=== PATIENT | male | born 1970 | race Hispanic/Latino ===

== ENCOUNTER 2017-03-28 20:53 | Observation (INO) | payer BC, OTHER ==
[2017-03-28 21:23] LABS: #Basophils 0.1 thou/uL (0.0-0.2); #Eosinphils 0.1 thou/uL (0.0-0.7); #Lymphocytes 2.5 thou/uL (1.20-3.40); #Monocytes 0.5 thou/uL (0.11-0.59); #Neutrophils 4.9 thou/uL (1.40-6.50); %Basophils 0.6 % (0.0-1.0); %Eosinophils 0.9 % (0.0-10.0); %Lymphocytes 31.3 % (21.0-51.0); %Monocytes 6.3 % (0.0-10.0); Hematocrit 41.9 % (42.0-52.0); Red Blood Cell (RBC) Count 4.59 mill/uL (4.70-6.10); White Blood Cell (WBC) Count 8.1 thou/uL (4.8-10.8)
[2017-03-28 21:51] LABS: ALT (SGPT) 11 U/L (8-55); AST (SGOT) 15 U/L (5-34); Alkaline Phosphatase 75 U/L (40-150); Anion Gap 13 mmol/L (10-20); BUN (Urea Nitrogen) 15 mg/dL (8.9-20.6); Bilirubin, Total 1.3 mg/dL (0.2-1.2); CK (CPK) 109 U/L (30-200); Calc. Creatinine Clearance 0 mL/min (70-130); Carbon Dioxide 24 mmol/L (22-29); Chloride 109 mmol/L (98-107); Estimated GFR-MDRD 78; Globulin 3.3 g/dL (2.4-3.5); Lipase 7 U/L (8-78); Protein, Total 7.1 g/dL (6.0-8.3)
[2017-03-28 21:54] LABS: Troponin I Less than 0.010 ng/mL (< 0.028)
--- NOTE | 2017-03-28 22:13 | RAD ---
PA AND LATERAL CHEST RADIOGRAPH: Date: 03-28-17 History: Upper abdominal pain, nausea. Comparison: 10-11-15, 12-20-16 FINDINGS: A single lead left subclavian AICD device remains in place. Cardiac silhouette remains enlarged. Par enchymal opacities at the lung bases on the prior studies are no longer seen and there is only minim al linear densities seen at each lung base, probably related to minimal scarring or atelectasis. Varinder gs are otherwise clear. Pulmonary vasculature is within normal limits. No other interval change. IMPRESSION: 1. No acute cardiopulmonary process. 2. Cardiomegaly. POS: [facility]
--- NOTE | 2017-03-28 23:54 | CT ---
NONCONTRAST CT ABDOMEN AND PELVIS: Date: 03-28-17 History: Upper abdominal pain with nausea. Constipation and shortness of breath. Weight loss. Comparison: 08-01-15 FINDINGS: There has been interval placement of a single lead left subclavian AICD device. Heart is mildly enlarged. There are small bilateral pleural effusions and associated minimal passive atelectasis. Gallbladder appears contracted. Nelson of the urinary bladder do appear mildly thickened and there is minimal inflammatory changes seen in the right upper quadrant especially adjacent to the neck of th e gallbladder. Calcified granuloma is seen in the right hepatic lobe. The spleen, pancreas, bilateral adrenal glands, kidneys, and decompressed urinary bladder demonstrat e a grossly normal nonenhanced CT appearance. No renal or ureteral calculi are seen bilaterally. The appendix is visualized and normal in caliber. Vascular calcifications are seen in the abdominal aorta and involving the iliac arteries. There has been no interval change from the prior exam. IMPRESSION: 1. Mild inflammatory stranding seen in the right upper quadrant. The nelson of the gallbladder appear mildly thickened, but this could be related to incomplete distention. Right upper quadrant ultrasou nd may be helpful for further evaluation, and to evaluate for cholecystitis. 2. Small bilateral pleural effusions. 3. No renal or ureteral calculi are seen bilaterally. 4. No CT evidence of appendicitis. 5. Mild cardiomegaly. POS: [facility]
[2017-03-29 00:24] LABS: Bilirubin Small (Negative); Blood, Urine Negative (Negative); Glucose, Urine (Dipstick) Negative (Negative); Ketone, Urine Trace mg/dL (Negative); Protein, Urine (Dipstick) 30 mg/dL (Neg-Trace)
[2017-03-29 00:25] LABS: Nitrite Negative (Negative)
[2017-03-29] MEDS ORDERED: Acetaminophen 500 MG TAB ONE (00:35)
[2017-03-29] MEDS ORDERED: Piperacillin/Tazobactam 3.375 GM in Sodium Chloride 0.9% 100 ML IVPB SCH ×3 (01:45→12:00)
[2017-03-29] MEDS ORDERED: Ondansetron ODT 4 MG TAB SL PRN (02:50)
[2017-03-29] MEDS ORDERED: Ondansetron HCl/PF 4 MG/2 ML Vial IVP PRN ×2 (02:50→16:30)
[2017-03-29] MEDS ORDERED: HYDROcodone/Acetaminophen 5/325 mg Tablet PO PRN ×2 (02:50)
[2017-03-29] MEDS ORDERED: Sodium Chloride 0.9% 1,000 ML IV SCH ×2 (02:50→09:15)
[2017-03-29] MEDS ORDERED: Acetaminophen 325 MG TAB PO PRN (02:50)
[2017-03-29] MEDS ORDERED: Ketorolac Tromethamine 30 MG/ML VIAL IVP PRN ×2 (02:53→06:24)
[2017-03-29 03:06] VITALS: TEMP 97.5; BMI 39.9
[2017-03-29] MEDS ORDERED: Carvedilol 6.25 MG TAB PO SCH (06:15)
[2017-03-29] MEDS ORDERED: Ondansetron ODT 4 MG TAB PO PRN (06:25)
[2017-03-29] MEDS ORDERED: Acetaminophen 1,000 MG in Premix Bag 1 BAG IVPB PRN (06:25)
--- NOTE | 2017-03-29 08:47 | ULT ---
PRELIMINARY REPORT/[facility]/EMERGENCY AFTER HOURS PROCEDURE: EXAM: US Abdomen Limited, Right Upper Quadrant EXAM DATE/TIME: Exam ordered 03/29/2017 12:43 AM CLINICAL HISTORY: 47 years old, male; Pain and signs and symptoms; Nausea and vomiting; Abdominal pain; Epigastric TECHNIQUE: Real-time ultrasound of the right upper quadrant with image documentation. COMPARISON: No relevant prior studies available. FINDINGS: Liver: Hepatic steatosis. No intrahepatic bile duct dilation. Gallbladder: There is diffuse gallbladder wall thickening with mural edema. No perceptible cholelith iasis. No pericholecystic fluid. Positive sonographic Bone sign. Common bile duct: Unremarkable as visualized. No stones. No dilation. Pancreas: Unremarkable as visualized. Right kidney: Unremarkable. No stones. No solid mass. No hydronephrosis. IMPRESSION: Gallbladder wall thickening with mural edema and positive sonographic Bone sign, compatible with a cute cholecystitis. Thank you for allowing us to participate in the care of your patient. Dictated and Authenticated by: Rob Brennan MD 03/29/2017 1:16 AM Central Time ([place] \T\ [place]) FINAL REPORT EMERGENCY AFTER HOURS GALLBLADDER ULTRASOUND: Date: 03/29/17 COMPARISON: 12/20/16. FINDINGS/IMPRESSION: I agree with the findings and impression given in the preliminary report per [facility] physician. No gall stones are seen. However, there appears to be gallbladder wall thickening and a small amount of alena cholecystic fluid. This could be secondary to acalculous cholecystitis. Correlate with LFTs. POS: [facility]
[2017-03-29] MEDS ORDERED: Furosemide 40 MG TAB PO SCH (09:00)
[2017-03-29] MEDS ORDERED: Aspirin 325 MG TAB PO SCH (09:00)
--- NOTE | 2017-03-29 09:15 | HP ---
HISTORY OF PRESENT ILLNESS: Sandeep Olivares is a 47-year-old male [facility] of epigastric right upper quadrant pain. CAT scan of abdomen and pelvis rev ealed some inflammatory changes around the gallbladder, which was contracted. Heart was noted to be mildly enlarged, minimally enlarged. He had some inflammatory effusions and mild cardiomegaly. Ga llbladder ultrasound was obtained revealing gallbladder thickening with mural edema and positive son ographic Bone sign, compatible with acute cholecystitis. Hemoglobin 14, white count 8.1. Liver f unction tests normal except for bilirubin of 1.3. This has been chronically elevated in the past. BNP was 2562. This has also been chronically elevated. Echocardiogram 10/2015 revealed a 25% eject ion fraction and LV dilatation, borderline LVH, read by Dr. Larkin. He had global hypokinesis and had a dilated cardiomyopathy. He was seen by Dr. Garcia in October 2015 for heart failure, diagnosed wit h cardiomyopathy as far back as 2011. Echo at that time 20-25%. Cardiac catheterization was recomm ended by Dr. Garcia at that time, but the patient went home as an outpatient. LifeVest implantation was done at home. Outpatient arrangements for cardiac catheterization and further workup were made . ALLERGIES: None. TOBACCO: Tobacco cessation several years ago. ALCOHOL: None. MEDICATIONS: Coreg 6.25 mg b.i.d., Entresto 24/26 mg tablets b.i.d., Nexium daily, aspirin daily, f urosemide daily. PAST SURGICAL HISTORY: Pacemaker placement. PAST MEDICAL HISTORY: LVH and cardiomyopathy. Will check with Dr. Garcia about recent workup. REVIEW OF SYSTEMS: Noncontributory. PHYSICAL EXAMINATION: VITAL SIGNS: Weight 239 pounds, height 5 foot 5 inches, 39 BMI, 97.5 degrees, 79, 104/71. HEENT: Unremarkable. LUNGS: Clear to auscultation. CARDIAC: Regular rate and rhythm without murmur or gallop. ABDOMEN: Soft, tenderness in his right upper quadrant with mild guarding. EXTREMITIES: Unremarkable. ASSESSMENT AND PLAN: 1. Ultrasound positive sonographic Bone sign, inflammatory changes around the gallbladder, suspec t acute cholecystitis. I would recommend laparoscopic video cholecystectomy. Will talk to Dr. Tim to first and plan this operation this afternoon pending consultation with Dr. Jose. 2. Cardiomyopathy. 3. Hypertension. ADDENDUM: I have spoken with Dr. Garcia. The patient has had a cardiac catheterization that was no rmal. I would plan to give him 1 dose of Lasix 80 mg IV, TKO his IV fluids and plan laparoscopic c holecystectomy this evening. Dr. Garcia states it is safe to proceed and he will probably be able t o see him around noon today preoperatively.
[2017-03-29] MEDS: Sacubitril 24.5 MG/Valsartan 25.5 MG TABLET PO SCH ×2 (09:16→20:03)
[2017-03-29] MEDS: Carvedilol 6.25 MG TAB PO SCH ×2 (09:16→20:02)
[2017-03-29] MEDS ORDERED: Furosemide 100 MG/10 ML VIAL SLOW IVP SCH ×2 (09:19→16:45)
--- NOTE | 2017-03-29 13:09 | CON ---
DATE OF CONSULTATION: 03/29/2017 REASON FOR CONSULTATION: Preoperative evaluation. HISTORY OF PRESENT ILLNESS: Mr. Olivares is a 47-year-old gentleman who comes to the [facility] for abdominal pain. He was diagnosed with biliary colic and is planning on having a cholecystecto my later today. He has a history of nonischemic cardiomyopathy, he was around 25-30% on last evalua tion. He had a heart catheterization less than a year ago and it showed normal coronaries. He even tually had an AICD placed, given his severe cardiomyopathy was not improving with medical therapy. He has been seen several times in the office. He has been euvolemic. Last time he was seen he was getting a little more fluid overload and was starting to have some abdominal pain. We increased his dose of Lasix and actually started to diurese quite well and did not have any need for any further increased Lasix dose. He currently is denying any chest pain, tightness, pressure. No shortness of breath. His breathing is at baseline. His only problem is abdominal pain. PAST MEDICAL HISTORY: 1. Nonischemic dilated cardiomyopathy. 2. Hypertension. 3. History of right pleural effusion, status post thoracentesis. PAST SURGICAL HISTORY: 1. Right thoracentesis as above. 2. Heart catheterization with normal coronaries. 3. AICD placement. OUTPATIENT MEDICATIONS: 1. Coreg 6.25 mg p.o. b.i.d. 2. Entresto 24/26 mg b.i.d. 3. Nexium 20 mg a day. 4. Aspirin 325 mg a day. 5. Lasix 40 mg a day. ALLERGIES: No known drug allergies. FAMILY HISTORY: Type 2 diabetes, otherwise noncontributory. SOCIAL HISTORY: No alcohol, tobacco or drugs. Former alcohol user, quit about 3-4 years ago, quit cigarettes 5-6 years ago. No drug use. REVIEW OF SYSTEMS: Twelve point review of systems was done, is otherwise negative unless stated in the history of present illness. PHYSICAL EXAMINATION: VITAL SIGNS: Temperature 97.5, pulse 79, respiration rate 16, satting 95% on room air, blood pressu re 104/71. GENERAL: Awake, alert, oriented x3, in no distress. HEENT: Normocephalic, atraumatic. NECK: Supple. LUNGS: Clear. CARDIOVASCULAR: S1, S2, no S3, S4, no murmurs or rubs. ABDOMEN: Soft, positive bowel sounds. EXTREMITIES: No edema. SKIN: Warm and dry. LABORATORY WORK: Reviewed. CBC is normal. Chemistries unremarkable except for total bilirubin of 1.3, troponin negative x1. His BNP is 2500, however, he is on Entresto. UA is unremarkable. EKG was reviewed, normal sinus rhythm, no ischemic changes except for occasional PVCs. ASSESSMENT AND PLAN: 1. Preoperative evaluation: He would be an intermediate risk for an intermediate risk procedure. At this point, he should be able to undergo said procedure with the understood risks. Would recomme nd 1 dose of IV Lasix before surgery and just have judicious use of fluids after the procedure. His BNP is not a good surrogate for his level of heart failure. Given his use of Entresto this number is going to be skewed and not going to be accurate. At this time, I think he is very well compensat ed with his heart failure and should be able to undergo procedure. 2. Dilated nonischemic cardiomyopathy, stable as above. Thank you for letting participate in the care of your patient. We will follow.
[2017-03-29] MEDS ORDERED: Iothalamate Meglumine 60% 50 ML VIAL FS ONE (15:02)
[2017-03-29] MEDS ORDERED: Bupivacaine HCl 0.5%/Epinephrine 1:200,000/PF 30 ml Vial ONE (15:02)
[2017-03-29] MEDS ORDERED: Midazolam HCl 2 mg/2 ml Vial ONE (15:03)
[2017-03-29] MEDS ORDERED: Fentanyl 100 MCG/2 ML VIAL ONE ×2 (15:03→17:05)
[2017-03-29] MEDS ORDERED: Ondansetron HCl/PF 4 MG/2 ML Vial ONE (15:24)
[2017-03-29] MEDS ORDERED: Glycopyrrolate 0.2 MG/ML 5 ML SYRINGE ONE (15:24)
[2017-03-29] MEDS ORDERED: Dexamethasone 20 MG/5 ML VIAL ONE (15:24)
[2017-03-29] MEDS ORDERED: PHENYLEPHRINE-NS 100 MCG/ML 10 ML SYRINGE ONE (15:24)
[2017-03-29] MEDS ORDERED: Propofol 200 MG/20 ML VIAL ONE (15:24)
[2017-03-29] MEDS ORDERED: Lidocaine 1% PF 5 ML VIAL ONE (15:24)
[2017-03-29] MEDS ORDERED: Albuterol Sulfate HFA (OR ONLY) ONE (16:12)
[2017-03-29] MEDS ORDERED: Promethazine HCl 25 MG/ML VIAL SLOW IVP PRN (16:30)
[2017-03-29] MEDS ORDERED: HYDROmorphone 2 MG/ML VIAL SLOW IVP PRN (16:30)
[2017-03-29] MEDS ORDERED: Promethazine HCl 25 MG/ML VIAL IM PRN (16:30)
[2017-03-29] MEDS ORDERED: traMADol HCl 50 MG TAB PO PRN ×2 (17:08)
[2017-03-29] MEDS ORDERED: Acetaminophen 500 MG TAB PO PRN (17:08)
[2017-03-29] MEDS ORDERED: Furosemide 40 MG/4 ML VIAL ONE (17:10)
[2017-03-29 20:03] VITALS: BP 112/78
--- NOTE | 2017-03-30 00:42 | OP ---
DATE OF PROCEDURE: 03/29/2017 PREOPERATIVE DIAGNOSIS: Cholecystitis, gallbladder sludge. POSTOPERATIVE DIAGNOSIS: Cholecystitis, gallbladder sludge. PROCEDURE: Laparoscopic cholecystectomy, normal intraoperative cholangiograms using fluoroscopy (im ages were lost by the x-ray radio tower technician and not produced for radiology read). SURGEON: Akira Murillo M.D. ANESTHESIA: General. Local of 0.5% Marcaine with epinephrine, 30 mL. PROCEDURE IN DETAIL: The patient taken to the operating room where under general anesthesia, abdome n was prepared with chloraprep, draped in routine fashion. Local anesthetic of 0.5% Marcaine with e pinephrine infiltrated into skin and subcutaneous tissue about each port site. Infraumbilical incis ion made and pneumoperitoneum to 15 mmHg obtained with the Veress needle, replacing it with a 5 port and laparoscope inserted. Right subxiphoid incision made and 11 port placed. Right subcostal inci alize made mid clavicular anterior axillary lines and 5 ports placed. Liver was congested and slight ly irregular, probably fatty. Fundus of the gallbladder grasped and reflected cephalad. Infundibul um grasped and reflected laterally. Gallbladder wall was edematous and cystic artery and duct disse cted free. Critical view obtained. Cystic artery and duct doubly clipped proximally. Opening made in the cystic duct, cholangiocath inserted and cholangiogram was obtained, using fluoroscopy reveal ing free flow of contrast into the duodenum without filling defects in the common hepatic, common bi le and left and right hepatic ducts. The pancreatic duct partially visualized. Cholangiocatheter r emoved. Cystic artery and duct doubly clipped proximally, divided, and gallbladder dissected free f rom the liver bed obtaining good hemostasis prior to division of final peritoneal attachments. Gall bladder and contents removed and submitted to Pathology. Good hemostasis ensured as irrigant and pn eumoperitoneum evacuated. All instruments removed and all skin incisions approximated with interrup ritu subdermal 4-0 Monocryl and DermaGlue applied.
--- NOTE | 2017-03-30 06:06 | DIS ---
DATE OF ADMISSION: 03/29/2017 DATE OF DISCHARGE: 03/29/2017 HISTORY: Sandeep Berry presented with right upper quadrant pain and nausea. Ultrasound and CAT scan revealed gallbladder distention, sonographic positive Bone sign, inflammation around the gallbladder. Bilirubin was slightly elevated as it chronically is. BMP is chronically elevated . He is known to have a cardiomyopathy, 20%-25% nonischemic. His cardiac catheterization performed earlier this year. He has defibrillator in place. Patient was diuresed and seen by Cardiology and underwent laparoscopic cholecystectomy. Cholangiograms were normal. Postoperatively, plan is for him to be discharged home to resume his home medications. In addition, Ultram # 21 refill given. D iet and activity as tolerated. Resume home medications, [id number] Tylenol, Motrin as needed for pain. Follow up in my office in 2-3 weeks.
[2017-04-03] MEDS ORDERED: Ibuprofen 600 MG TAB PO PRN (12:00)
== END 2017-03-29 21:44 | disposition home or self-care (01) ==
LOC: ERS 20:53 → INTOOBSV 03-29 02:59 → T4-B 03-29 02:59
PROVIDERS: ADMIT Specialist; ATTEND Specialist
PROC: 0FT44ZZ Resection of Gallbladder, Percutaneous Endoscopic Approach (ICD-10-PCS; principal; 2017-03-29)
PROC: BF141ZZ Fluoroscopy of Gallbladder, Bile Ducts and Pancreatic Ducts using Low Osmolar Contrast (ICD-10-PCS; 2017-03-29)
DX: K81.1 Chronic cholecystitis (principal); K65.8 Other peritonitis; I11.0 Hypertensive heart disease with heart failure; I50.9 Heart failure, unspecified; I42.0 Dilated cardiomyopathy; Z79.82 Long term (current) use of aspirin; Z79.899 Other long term (current) drug therapy; Z95.810 Presence of automatic (implantable) cardiac defibrillator; Z87.891 Personal history of nicotine dependence
CPT/HCPCS: 47532; 71020; 74176; 76705; 80053; 81003; 81015; 82550; 82553; 83690; 83880; 84484; 85025; 88304; 93005; 96361; 96365; 96374; 96375; 96376; A4216; G0378; J0670; J1100; J1610; J1940; J2001; J2250; J2270; J2405; J2543; J2704; J3010; J7050; Q9961

== ENCOUNTER 2017-06-03 08:04 | Emergency (ER) | payer BC, OTHER ==
[2017-06-03 08:24] LABS: #Lymphocytes 1.9 thou/uL (1.20-3.40); #Monocytes 0.4 thou/uL (0.11-0.59); #Neutrophils 3.8 thou/uL (1.40-6.50); %Basophils 0.2 % (0.0-1.0); %Eosinophils 0.7 % (0.0-10.0); %Lymphocytes 30.9 % (21.0-51.0); Hematocrit 43.8 % (42.0-52.0); Mean Platelet Volume 8.3 fL (7.4-10.4); Red Blood Cell (RBC) Count 4.68 mill/uL (4.70-6.10); White Blood Cell (WBC) Count 6.1 thou/uL (4.8-10.8)
[2017-06-03] MEDS ORDERED: Lidocaine Viscous Sol 2% 15 ml UD Cup ONE (08:27)
[2017-06-03] MEDS ORDERED: Mag-Al 1200 mg/1200 mg/30 ML UDCUP ONE (08:27)
[2017-06-03 08:32] LABS: PTT 32.3 SEC (22.9-36.1); Prothrombin Time 15.3 SEC (12.0-14.7)
--- NOTE | 2017-06-03 08:50 | RAD ---
PORTABLE AP CHEST XRAY: DATE: 06/03/17. HISTORY: Epigastric pain, shortness of breath. COMPARISON: 12/20/16. FINDINGS: A single lead left subclavian cardiac pacemaking device remains in place. Cardiac silhouette is magn ified by projection but does appear at the upper limits of normal in size to borderline enlarged but is stable from prior exam. There are linear increased densities right lung base probably related to vascular structures. There is suboptimal evaluation of the left lung base, but no definitive consoli dation is seen. Pulmonary vasculature is within normal limits. No other interval change. IMPRESSION: Upper limits of normal to borderline cardiomegaly without overt congestive heart failure. Patchy den sity at the right lung base has improved and on today's exam appears to represent vascular structures . POS: [facility]
[2017-06-03 08:52] LABS: ALT (SGPT) 21 U/L (8-55); AST (SGOT) 22 U/L (5-34); Alkaline Phosphatase 72 U/L (40-150); Anion Gap 13 mmol/L (10-20); BUN (Urea Nitrogen) 15 mg/dL (8.9-20.6); Bilirubin, Total 2.7 mg/dL (0.2-1.2); CK (CPK) 87 U/L (30-200); Calc. Creatinine Clearance 0 mL/min (70-130); Calcium 9.1 mg/dL (7.8-10.44); Carbon Dioxide 24 mmol/L (22-29); Chloride 106 mmol/L (98-107); Estimated GFR-MDRD Greater than 90; Globulin 3.2 g/dL (2.4-3.5); Lipase 9 U/L (8-78); Protein, Total 7.1 g/dL (6.0-8.3)
[2017-06-03 08:56] LABS: Troponin I 0.016 ng/mL (< 0.028)
== END 2017-06-03 10:23 | disposition home or self-care (01) ==
LOC: ERS 08:04
DX: R10.13 Epigastric pain (principal); I11.0 Hypertensive heart disease with heart failure; I50.9 Heart failure, unspecified; Z79.82 Long term (current) use of aspirin; Z79.899 Other long term (current) drug therapy
CPT/HCPCS: 71010; 80053; 82550; 82553; 83690; 83880; 84484; 85025; 85610; 85730; 93005

== ENCOUNTER 2017-06-20 07:52 | Emergency (ER) | payer BC, OTHER ==
--- NOTE | 2017-06-20 08:20 | RAD ---
TWO VIEWS OF THE CHEST: DATE: 06/20/17. COMPARISON: 03/28/17. HISTORY: Fever, cough, and diarrhea. FINDINGS: Marked enlargement of the cardiac silhouette noted with a stable single-lead transvenous pacing devic e. No pneumothorax is noted. There is mild pulmonary vascular prominence, increased since the prior exam. There is patchy increased density in the left lung base partially obscuring the left hemidiaphragm, a new finding. Lateral imaging is limited on the basis of respiratory motion artifact. IMPRESSION: 1. Stable prominent enlargement of the cardiac silhouette. 2. New hazy area of airspace disease noted in the left lung base suggests left lower lobe infectious pneumonitis/aspiration. Recommend followup imaging following treatment to document resolution. POS: [facility]
[2017-06-20 08:41] LABS: #Lymphocytes 0.9 thou/uL (1.20-3.40); #Monocytes 0.9 thou/uL (0.11-0.59); #Neutrophils 7.1 thou/uL (1.40-6.50); %Basophils 0.1 % (0.0-1.0); %Eosinophils 0.1 % (0.0-10.0); %Lymphocytes 9.6 % (21.0-51.0); %Monocytes 10.2 % (0.0-10.0); Hematocrit 40.2 % (42.0-52.0); Mean Platelet Volume 8.5 fL (7.4-10.4); Red Blood Cell (RBC) Count 4.36 mill/uL (4.70-6.10); White Blood Cell (WBC) Count 8.9 thou/uL (4.8-10.8)
[2017-06-20 08:56] LABS: ALT (SGPT) 16 U/L (8-55); AST (SGOT) 22 U/L (5-34); Alkaline Phosphatase 58 U/L (40-150); Anion Gap 14 mmol/L (10-20); BUN (Urea Nitrogen) 19 mg/dL (8.9-20.6); Bilirubin, Total 2.5 mg/dL (0.2-1.2); Calc. Creatinine Clearance 0 mL/min (70-130); Calcium 8.9 mg/dL (7.8-10.44); Carbon Dioxide 22 mmol/L (22-29); Chloride 100 mmol/L (98-107); Estimated GFR-MDRD 69; Globulin 3.1 g/dL (2.4-3.5); Protein, Total 6.9 g/dL (6.0-8.3)
== END 2017-06-20 09:34 | disposition home or self-care (01) ==
LOC: ERS 07:52
DX: J10.1 Influenza due to other identified influenza virus with other respiratory manifestations (principal); I11.0 Hypertensive heart disease with heart failure; I50.9 Heart failure, unspecified; Z79.82 Long term (current) use of aspirin; Z79.899 Other long term (current) drug therapy
CPT/HCPCS: 36415; 71020; 80053; 85025; 87081; 87430

== ENCOUNTER 2017-08-26 20:02 | Inpatient (IN) | payer BC, OTHER ==
[~2017-08-26 20:02] MED LIST: ISOVUE-370 76%-LOCM 1 ML ONE
[2017-08-26 20:38] LABS: Hemoglobin 12.9 g/dL (14.0-18.0); Mean Corpuscular HGB CONC 32.5 g/dL (32.0-36.0); Mean Corpuscular Hemoglobin 29.3 pg (27.0-31.0); Mean Corpuscular Volume 90.1 fl (80.0-94.0); Mean Platelet Volume 8.2 fL (7.4-10.4); Platelet Count 255 thou/uL (130-400); Red Blood Cell (RBC) Count 4.41 mill/uL (4.70-6.10)
--- NOTE | 2017-08-26 20:39 | RAD ---
TWO VIEW CHEST: 08/26/17 HISTORY: Chest pain. COMPARISON: 06/20/17. Cardiomegaly again noted. Mild vascular engorgement appears stable. there is patchy density in the le ft lung base which could represent inflammatory infiltrate. CP angle are blunted suggesting small eff usions. Single AICD lead is unchanged. IMPRESSION: 1. Cardiomegaly with mild vascular engorgement. 2. Evidence of patchy infiltrate in the left lung base and small bilateral effusions. POS: [facility]
[2017-08-26] MEDS ORDERED: Furosemide 40 MG/4 ML VIAL ONE (20:40)
[2017-08-26 20:57] LABS: #Lymphocytes 1.9 thou/uL (1.20-3.40); #Monocytes 0.6 thou/uL (0.11-0.59); #Neutrophils 4.4 thou/uL (1.40-6.50); %Basophils 0.5 % (0.0-1.0); %Eosinophils 0.7 % (0.0-10.0); %Lymphocytes 27.3 % (21.0-51.0); %Monocytes 7.9 % (0.0-10.0); %Neutrophils 63.6 % (42.0-75.0)
[2017-08-26 20:59] LABS: ALT (SGPT) 21 U/L (8-55); AST (SGOT) 27 U/L (5-34); Albumin 3.7 g/dL (3.5-5.0); Alkaline Phosphatase 99 U/L (40-150); Anion Gap 11 mmol/L (10-20); BUN (Urea Nitrogen) 24 mg/dL (8.9-20.6); Bilirubin, Total 1.7 mg/dL (0.2-1.2); CK (CPK) 89 U/L (30-200); Calc. Creatinine Clearance 0 mL/min (70-130); Calcium 8.7 mg/dL (7.8-10.44); Carbon Dioxide 25 mmol/L (22-29); Chloride 106 mmol/L (98-107); Estimated GFR-MDRD 71; Globulin 3.5 g/dL (2.4-3.5); Glucose 132 mg/dL (70-105); Lipase 40 U/L (8-78); Magnesium 2.1 mg/dL (1.6-2.6); Potassium 4.4 mmol/L (3.5-5.1); Protein, Total 7.2 g/dL (6.0-8.3); Sodium 138 mmol/L (136-145)
[2017-08-26 21:00] LABS: INR-International Normal Ratio 1.4; PTT 36.3 SEC (22.9-36.1); Prothrombin Time 17.4 SEC (12.0-14.7)
[2017-08-26 21:01] LABS: CKMB 1.6 ng/mL (0-6.6); Troponin I 0.024 ng/mL (< 0.028)
[2017-08-26 21:15] LABS: D-Dimer Test 5.61 *mcg/mL (0.27-0.43)
[2017-08-26 22:19] LABS: Bilirubin Negative (Negative); Blood, Urine Negative (Negative); Clarity CLEAR (Clear); Glucose, Urine (Dipstick) Negative (Negative); Leukocyte Negative (Negative); Nitrite Negative (Negative); Protein, Urine (Dipstick) Negative (Neg-Trace); Specific Gravity, Urine 1.009 (1.002-1.036); Urobilinogen 0.2 mg/dL (0.2-1.0)
--- NOTE | 2017-08-26 22:42 | CT ---
CT PULMONARY ANGIO OF CHEST WITH CONTRAST: 08/26/17 Multiple axial tomograms were obtained through the chest per pulmonary angio protocol with multiplana r reconstruction and 3D postprocessing. HISTORY: Shortness of breath. Assess for pulmonary embolus. FINDINGS: Pulmonary arteries show adequate opacification. There is no evidence of pulmonary embolus identified. Mediastinum appears unremarkable. Small right pleural effusion and tiny left pleural effusion. Infiltrative densities seen in the left lower lobe and early infiltrate in the right lower lobe. Mild atelectasis along the left fissure. Images through upper abdomen unremarkable. There is evidence of a small amount of ascites around the liver and spleen. IMPRESSION: 1. No evidence of pulmonary embolus. 2. Small bilateral effusions, slightly larger on the right. 3. Bibasilar infiltrates, more prominent on the left. 4. Evidence of small amount of ascites noted in the upper abdomen. POS: [facility]
[2017-08-27] MEDS ORDERED: Ondansetron ODT 4 MG TAB SL PRN (00:42)
[2017-08-27] MEDS ORDERED: Ondansetron HCl/PF 4 MG/2 ML Vial IVP PRN ×2 (00:42→02:27)
[2017-08-27 01:19] VITALS: BMI 39.6
[2017-08-27 01:50] LABS: Troponin I 0.023 ng/mL (< 0.028)
[2017-08-27] MEDS ORDERED: Calcium Carbonate 500 MG ChewTAB PO PRN (02:27)
[2017-08-27] MEDS ORDERED: Ondansetron ODT 4 MG TAB PO PRN (02:27)
[2017-08-27] MEDS ORDERED: Senokot 8.6 MG TAB PO PRN (02:27)
[2017-08-27] MEDS ORDERED: Doxycycline 100 MG CAP PO SCH ×2 (02:30→09:00)
--- NOTE | 2017-08-27 02:46 | HP ---
DATE OF ADMISSION: 08/27/2017 CHIEF COMPLAINT: Shortness of breath. PRIMARY CARE PHYSICIAN: JEROME Rubio. PRIMARY EMERGENCY MANAGEMENT DIRECTOR: Dr. Garcia. HISTORY OF PRESENT ILLNESS: Patient is a 47-year-old male with chronic systolic heart failure, eject ion fraction 20% to 25%, status post AICD, presented to the emergency room with worsening shortness o f breath over the past 2 to 3 weeks. The shortness of breath has progressively worsened. He gets sh ort of breath on mild to moderate exertion. He also noticed bilateral lower extremity swelling. He denies any chest pain, palpitations, lightheadedness, dizziness, or syncope. He is compliant with fo llow up with Cardiology and had an echocardiogram approximately a month ago. He does not monitor his weight on a daily basis. He also tried increasing the dose of Lasix without much relief. He then d ecided to come to the emergency room. Patient also has cough productive of thick whitish phlegm. PAST MEDICAL HISTORY: 1. Chronic systolic and diastolic heart failure, ejection fraction 20% to 25%, status post AICD. 2. Hypertension. 3. History of right pleural effusion, status post thoracentesis. PAST SURGICAL HISTORY: 1. AICD placement. 2. Thoracentesis. 3. EGD. 4. Laparoscopic cholecystectomy. ALLERGIES: Patient denies any drug allergies. CURRENT HOME MEDICATIONS: Reviewed with the patient. He is able to recall some of the medications t hat include Lasix 40 mg daily, Entresto, carvedilol. Exact dosages to be confirmed. SOCIAL HISTORY: Patient currently lives at home. Denies any smoking, alcohol, or drug use. He is a former smoker. FAMILY HISTORY: Negative for premature coronary artery disease. REVIEW OF SYSTEMS: The following complete review of systems was negative, unless otherwise mentioned in the HPI or below: CONSTITUTIONAL: Weight loss or gain, ability to conduct usual activities. SKIN: Rash, itching. EYES: Double vision, pain. ENT/MOUTH: Nose bleeding, neck stiffness, pain, tenderness. CARDIOVASCULAR: Palpitations, dyspnea on exertion, orthopnea. RESPIRATORY: Shortness of breath, wheezing, cough, hemoptysis, fever or night sweats. GASTROINTESTINAL: Poor appetite, abdominal pain, heartburn, nausea, vomiting, constipation, or diarr hea. GENITOURINARY: Urgency, frequency, dysuria, nocturia. MUSCULOSKELETAL: Pain, swelling. NEUROLOGIC/PSYCHIATRIC: Anxiety, depression. ALLERGY/IMMUNOLOGIC: Skin rash, bleeding tendency. PHYSICAL EXAMINATION: VITAL SIGNS: In the emergency room, temperature 98.3, respiration of 22, pulse rate of 90, blood pre ssure of 100/73 with O2 saturation of 98% on room air. GENERAL: A 47-year-old male in mild respiratory distress. HEENT: Atraumatic, normocephalic. Sclerae are anicteric. Moist mucous membrane, no oral lesion. NECK: Supple. JVD elevated. No carotid bruit. LUNGS: Showed diminished air entry at bilateral bases with scattered bibasilar rales, no wheezing or rhonchi. HEART: S1, S2 present. Regular rate and rhythm. No rubs or gallops appreciated. ABDOMEN: Soft, nontender, bowel sounds present, obese. EXTREMITIES: 1+ edema in bilateral lower extremities. SKIN: Warm and dry. LYMPH NODES: No palpable lymph nodes in the neck. PERIPHERAL VASCULAR: Radial pulses palpable bilaterally. MUSCULOSKELETAL: No joint swelling or tenderness. LABORATORY FINDINGS: 1. CBC showed WBC of 7 with hemoglobin 12.9. 2. INR 1.4, PT 17.4. 3. BUN 24, creatinine 1.1, total bilirubin 1.7. 4. BNP 3370. Troponin was negative. TSH was normal. 5. CT angiogram of the chest was negative for pulmonary embolism. It showed bibasilar infiltrate, m ore prominent on the left with small amount of ascites and small bilateral effusions. 6. Chest x-ray by my review showed cardiomegaly with pulmonary vascular congestion. IMPRESSION: 1. Acute on chronic systolic and diastolic heart failure exacerbation. 2. Acute bronchitis with suspected community-acquired pneumonia, questionable pneumococcal. 3. Chronic kidney disease stage 2. 4. Abnormal liver function tests secondary to passive hepatic congestion. 5. Obesity with a BMI at 39.7. 6. Small bilateral pleural effusion with small amount of ascites secondary to congestive heart failu re. 7. Former smoker. 8. Status post AICD. 9. Hypertension. 10. Chronic anemia. PLAN: 1. Patient will be monitored in the telemetry unit. We will continue diuretics. Patient had an ech ocardiogram a month ago with Dr. Garcia. We will continue IV diuretics. Resume home dose of Entrest o based on last discharge summary. Fluid restriction. 2. Plan of care was discussed with the patient in detail. He stated understanding. 3. We will monitor labs on the daily basis. 4. Patient will require 2 days for stabilization. He has to be at work on Tuesday, otherwise, he jaclyn l get fired per patient report.
[2017-08-27] MEDS ORDERED: cefTRIAXone\\ROCEPHIN 2 GM in Sodium Chloride 0.9% 100 ML IVPB SCH (03:00)
[2017-08-27 05:37] LABS: Anion Gap 10 mmol/L (10-20); BUN (Urea Nitrogen) 21 mg/dL (8.9-20.6); Calc. Creatinine Clearance 120 mL/min (70-130); Carbon Dioxide 28 mmol/L (22-29); Chloride 106 mmol/L (98-107); Estimated GFR-MDRD 68; Potassium 3.6 mmol/L (3.5-5.1); Sodium 140 mmol/L (136-145)
[2017-08-27 05:38] LABS: Calcium 8.6 mg/dL (7.8-10.44); Glucose 127 mg/dL (70-105)
[2017-08-27 05:44] LABS: Troponin I 0.026 ng/mL (< 0.028)
[2017-08-27] MEDS ORDERED: Furosemide 40 MG/4 ML VIAL SLOW IVP SCH (06:00)
[2017-08-27] MEDS: Furosemide 40 MG/4 ML VIAL SLOW IVP SCH ×2 (06:22→16:59)
[2017-08-27] MEDS ORDERED: Aspirin 325 mg Enteric Coated Tablet PO SCH (09:00)
[2017-08-27] MEDS: Carvedilol 3.125 MG TAB PO SCH ×2 (09:49→22:36)
[2017-08-27] MEDS: Sacubitril 24.5 MG/Valsartan 25.5 MG TABLET PO SCH ×2 (09:49→22:36)
[2017-08-27] MEDS: Docusate 100 MG CAP PO SCH ×2 (09:49→22:35)
[2017-08-27] MEDS: Aspirin 81 mg Enteric Coated Tablet PO SCH (09:50)
[2017-08-27] MEDS: Famotidine 20 MG TAB PO SCH ×2 (09:50→22:35)
[2017-08-27] MEDS: Acetaminophen 325 MG TAB PO PRN ×2 (10:17→22:35)
--- NOTE | 2017-08-27 15:01 | PDOC.PN ---
- Subjective Encounter Start Date: 08/27/17 Encounter Start Time: 15:00 Subjective: f/u for acute/chronic systolic CHF exacerbation on IV Lasix. Overall -: doing better today. EF 25% by most recent Echo. - Objective Resuscitation Status: Resuscitation Status FULL:Full Resuscitation MAR Reviewed: Yes Vital Signs & Weight: Vital Signs (12 hours) Temp Pulse Pulse Pulse Resp BP BP 08/27/17 12:58 87 90 116/77 106/76 08/27/17 12:00 88 18 08/27/17 08:00 97.9 F 88 18 08/27/17 04:00 97.6 F 91 20 BP Pulse Ox Pulse Ox Pulse Ox 08/27/17 12:58 95 98 08/27/17 12:00 125/69 95 08/27/17 08:00 115/87 95 08/27/17 04:00 103/66 94 L Weight Admit Weight 238 lb 11.2 oz Weight 238 lb 3.2 oz I&O: 08/26/17 08/27/17 08/28/17 06:59 06:59 06:59 Intake Total 900 Output Total 175 Balance 725 Result Diagrams: 08/26/17 20:22 08/27/17 05:07 Additional Labs: Laboratory Tests 01/30/16 12/20/16 03/28/17 01:26 08:52 21:09 B-Natriuretic Peptide 185.2 H 1980.4 H 2562.4 H TSH 3rd Generation 06/03/17 08/26/17 08/26/17 08:12 20:22 20:22 B-Natriuretic Peptide 2479.8 H 3370.5 H TSH 3rd Generation 1.9116 EKG Reviewed by me: Yes (Tele - SR) Phys Exam - Physical Examination Constitutional: NAD HEENT: PERRLA, oral pharynx no lesions Neck: no JVD, supple Respiratory: no wheezing, clear to auscultation bilateral Cardiovascular: RRR Gastrointestinal: soft, non-tender, no distention, positive bowel sounds Musculoskeletal: pulses present, edema present Neurological: normal sensation, moves all 4 limbs Psychiatric: A&O x 3 Skin: normal turgor, cap refill <2 seconds Dx/Plan (1) Acute on chronic systolic CHF (congestive heart failure) Code(s): I50.23 - ACUTE ON CHRONIC SYSTOLIC (CONGESTIVE) HEART FAILURE Status : Acute Comment: EF 25%, continue Lasix 40mg IV q12h, monitor daily weight and I/O's (2) HTN (hypertension) Code(s): I10 - ESSENTIAL (PRIMARY) HYPERTENSION Status: Chronic Qualifiers: Hypertension type: essential hypertension Qualified Code(s): I10 - Essential (primary) hypertension Comment: Hypotension noted currently, monitor closely, likely due to diuresing (3) CKD (chronic kidney disease), stage II Code(s): N18.2 - CHRONIC KIDNEY DISEASE, STAGE 2 (MILD) Status: Chronic Comment: Monitor renal function closely given increase diuretic exposure, avoid nephrotoxic meds, repeat creatinine in am - Plan out of bed/ambulate, DVT proph w/SCDs Stable overall -: Continue Lasix 40mg IV q12h -: D/C Rocephin and Doxycycline -: Continue Entresto -: Resume ASA 81mg daily * AM lab: BMP * Likely home in 24h
[2017-08-27] MEDS ORDERED: Furosemide 20 MG/2 ML VIAL SLOW IVP SCH (16:30)
[2017-08-27] MEDS ORDERED: Metolazone 5 MG TAB PO SCH (16:45)
[2017-08-27] MEDS ORDERED: Potassium Chloride 20 MEQ TAB PO SCH (16:45)
--- NOTE | 2017-08-27 16:58 | CON ---
CARDIOLOGY CONSULTATION NOTE DATE OF CONSULTATION: 08/27/2017 REASON FOR CONSULTATION: Congestive heart failure. PRIMARY DINING HOST: Dr. Garcia. HISTORY OF PRESENT ILLNESS: Mr. Olivares is a very pleasant 47-year-old gentleman with history of nonischemic cardiomyopathy. He has been maintained on medical therapy for his congestive heart failure, but recently had progressive fluid retention and not responding to the diuretics and came in with shortness of breath, found to be in congestive heart failure. He has been admitted to the hospital for further therapy. He had no chest pain. The patient is feeling better now after diuresis. PAST MEDICAL HISTORY: 1. Nonischemic cardiomyopathy, ejection fraction of 15%. 2. Hypertension. PAST SURGICAL HISTORY: 1. Previous AICD placement. 2. Thoracentesis. 3. Cholecystectomy. ALLERGIES: None. MEDICATIONS: At home Entresto, Lasix and carvedilol. SOCIAL HISTORY: He lives at home. No smoking or alcohol. He used to smoke, but he quit. FAMILY HISTORY: Negative for heart disease at a young age. REVIEW OF SYSTEMS: Constitutional: No significant weight gain or loss. Vision : No changes. Hearing: No changes. Pulmonary: No cough or wheezing. Cardiac: Positive for shortness of breath and swelling. Gastrointestinal: No nausea, vomiting or diarrhea. Skin: No rashes. Neurologic: No unilateral weakness or numbness. Psychiatric: No unusual depression or anxiety. PHYSICAL EXAMINATION: GENERAL: This is a pleasant 47-year-old man resting comfortably. VITAL SIGNS: His blood pressure is 125/69 and pulse 88 regular. EYES: Sclerae nonicteric. MOUTH: Mucous membranes moist. NECK: Supple. No lymphadenopathy. LUNGS: Clear. No wheezing, rales or rhonchi. CARDIOVASCULAR: Normal S1 and normal S2. There is no murmur, rub or gallop. ABDOMEN: Soft and nontender. EXTREMITIES: No clubbing or cyanosis. There is 1+ to 2+ edema. SKIN: Warm and dry. PERTINENT LABORATORY AND X-RAY FINDINGS: BNP 3370, troponin 0.026. Hemoglobin is 12.9. EKG: Sinus rhythm. No acute changes. Recent echocardiogram done in our office in 07/2017, ejection fraction of 15% to 20%, moderate mitral regurgitation and moderate left atrial enlargement. CONCLUSION: 1. Congestive heart failure, systolic, acute on chronic, not well compensated. 2. Reviewing the medication list from the office, the patient was on Entresto 24/ twice a day, carvedilol 6.25 twice daily and Lasix 40 mg twice a day and aspirin. PLAN: 1. We will increase Entresto. 2. Continue diuretic. 3. Continue to follow with you. 4. He is on intravenous diuretic as well. MTDD
[2017-08-28 05:21] LABS: Anion Gap 8 mmol/L (10-20); BUN (Urea Nitrogen) 22 mg/dL (8.9-20.6); Calc. Creatinine Clearance 114 mL/min (70-130); Calcium 8.9 mg/dL (7.8-10.44); Carbon Dioxide 31 mmol/L (22-29); Chloride 103 mmol/L (98-107); Estimated GFR-MDRD 64; Glucose 137 mg/dL (70-105); Magnesium 1.9 mg/dL (1.6-2.6); Potassium 3.6 mmol/L (3.5-5.1); Sodium 138 mmol/L (136-145)
[2017-08-28] MEDS: Furosemide 40 MG/4 ML VIAL SLOW IVP SCH ×2 (06:01→12:52)
[2017-08-28] MEDS: Acetaminophen 325 MG TAB PO PRN (06:05)
[2017-08-28] MEDS: Aspirin 81 mg Enteric Coated Tablet PO SCH (09:09)
[2017-08-28] MEDS: Carvedilol 3.125 MG TAB PO SCH (09:09)
[2017-08-28] MEDS: Docusate 100 MG CAP PO SCH (09:10)
[2017-08-28] MEDS: Sacubitril 24.5 MG/Valsartan 25.5 MG TABLET PO SCH (09:10)
[2017-08-28] MEDS: Famotidine 20 MG TAB PO SCH (09:10)
--- NOTE | 2017-08-28 11:10 | DIS ---
DATE OF ADMISSION: 08/27/2017 DATE OF DISCHARGE: 08/28/2017 DISCHARGE DIAGNOSES: 1. Acute on chronic systolic congestive heart failure exacerbation with ejection fraction of 15%, im proved. 2. Hypertension, stable. 3. Chronic kidney disease stage 2. 4. Status post automated implantable cardioverter-defibrillator placement. CONSULTATION: Dr. Farley with Cardiology Service. PERTINENT LABORATORY DATA AND X-RAY FINDINGS: Creatinine ranged between 1.10-1.20 with estimated GFR ranging between 64-71. Troponin I negative x3. BNP 3371, previously noted 2480 on 06/03/2017. TSH 1.91. CBC within normal limits. Portable chest x-ray dated 08/26/2017 showed cardiomegaly with mil d vascular prominence. Small bilateral pleural effusions noted. CT angiogram of the chest dated showed no evidence for pulmonary embolus. Small bilateral pleural effusions. HOSPITAL COURSE: Patient was admitted to the telemetry unit who initially presented with worsening d yspnea in the context of chronic systolic congestive heart failure. The patient was noted with pulmo nary edema and placed on IV Lasix with excellent diuresis during the hospital course. The patient wa s evaluated by the Cardiology Service due to severe systolic dysfunction with recommendations to incr ease Entresto to 49/51 mg p.o. b.i.d. The patient continued to receive IV Lasix throughout the hospi nga course with an approximate 7 pound weight loss during the hospital course. Overall, patient tracy ined clinically stable with diuretic therapy. Telemetry monitoring showed bigeminal pattern with sin us mechanism. Overall, patient clinically stable and ready for discharge on 08/28/2017. DISCHARGE MEDICATIONS: 1. Enteric coated aspirin 81 mg 1 tab p.o. daily. 2. Coreg 6.25 mg p.o. b.i.d. 3. Nexium 20 mg p.o. daily. 4. Lasix 40 mg p.o. b.i.d. 5. Entresto 49/51 mg 1 tab p.o. b.i.d. FOLLOWUP: The patient may follow up with his primary care provider, Lizzeth Bowden at [facility] with in 7 days. The patient will follow up with Dr. Garcia with [facility] in the n ext 2 weeks. The patient will also follow up with [facility] and to call office for appoin tment time and date. CONDITION ON DISCHARGE: Stable. ACTIVITY: ad vincent. DIET: Heart healthy. CODE STATUS: FULL. DISPOSITION: Home 08/28/2017. Total time in preparing and coordinating discharge is 34 minutes.
--- NOTE | 2017-08-28 11:45 | PRG ---
DATE OF SERVICE: 08/28/2017 SUBJECTIVE: Ms. Berry feels better and likes to go home. He put out over 3 liters of urine yesterday. OBJECTIVE: VITAL SIGNS: Blood pressure 115/83, pulse 89 and regular. LUNGS: Clear. CARDIAC: Normal S1, normal S2. ABDOMEN: Soft, nontender. EXTREMITIES: Now only mild edema. ASSESSMENT: Congestive heart failure, systolic, acute on chronic, improved. PLAN: 1. He will go home on Entresto one twice a day. Samples were given. 2. Furosemide 40 mg twice a day. 3. Follow up with Dr. Garcia within a couple of weeks.
[2017-08-28 14:30] VITALS: BP 105/77; TEMP 97.4
== END 2017-08-28 14:31 | disposition home or self-care (01) | DRG 291 ==
LOC: ERS 20:02 → 2NO 08-27 00:25
PROVIDERS: ADMIT Internal Medicine; ATTEND Internal Medicine
DX: I13.0 Hypertensive heart and chronic kidney disease with heart failure and stage 1 through stage 4 chronic kidney disease, or unspecified chronic kidney disease (principal); I50.23 Acute on chronic systolic (congestive) heart failure; I42.8 Other cardiomyopathies; D53.9 Nutritional anemia, unspecified; E66.9 Obesity, unspecified; N18.2 Chronic kidney disease, stage 2 (mild); Z87.891 Personal history of nicotine dependence; Z95.810 Presence of automatic (implantable) cardiac defibrillator; Z68.39 Body mass index [BMI] 39.0-39.9, adult; J20.9 Acute bronchitis, unspecified
CPT/HCPCS: 36415; 71046; 71275; 80048; 80053; 81003; 82550; 82553; 83690; 83735; 83880; 84443; 84484; 85025; 85379; 85610; 85730; 93005; 93798; 96374; A4216; J0696; J1940; J7050; J7620

== ENCOUNTER 2017-10-01 19:30 | Outpatient (CLI) | payer BC, OTHER | END 2017-10-01 19:31 | disposition home or self-care (01) | LOC: SLEEPLAB 19:30 | PROVIDERS: ATTEND Internal Medicine Critical Care Medicine | DX: G47.33 Obstructive sleep apnea (adult) (pediatric) (principal); I11.9 Hypertensive heart disease without heart failure | CPT/HCPCS: 95810 ==

== ENCOUNTER 2017-11-07 06:33 | Inpatient (IN) | payer BC, OTHER ==
[2017-11-07 07:21] LABS: Bilirubin Negative (Negative); Blood, Urine Negative (Negative); Clarity CLEAR (Clear); Glucose, Urine (Dipstick) Negative (Negative); Leukocyte Negative (Negative); Nitrite Negative (Negative); Protein, Urine (Dipstick) Negative (Neg-Trace); Specific Gravity, Urine 1.016 (1.002-1.036); pH, Urine 6.5 (5.0-9.0)
[2017-11-07 07:26] LABS: #Lymphocytes 1.8 thou/uL (1.20-3.40); #Monocytes 0.4 thou/uL (0.11-0.59); #Neutrophils 3.7 thou/uL (1.40-6.50); %Basophils 0.5 % (0.0-1.0); %Eosinophils 0.5 % (0.0-10.0); %Lymphocytes 30.4 % (21.0-51.0); %Monocytes 6.9 % (0.0-10.0); %Neutrophils 61.7 % (42.0-75.0); Hemoglobin 12.6 g/dL (14.0-18.0); Mean Corpuscular HGB CONC 33.9 g/dL (32.0-36.0); Mean Corpuscular Hemoglobin 29.5 pg (27.0-31.0); Mean Corpuscular Volume 86.9 fl (80.0-94.0); Mean Platelet Volume 8.8 fL (7.4-10.4); Platelet Count 201 thou/uL (130-400); RBC Distribution Width 16.1 % (11.5-14.5); Red Blood Cell (RBC) Count 4.27 mill/uL (4.70-6.10); White Blood Cell (WBC) Count 6.1 thou/uL (4.8-10.8)
[2017-11-07 07:49] LABS: ALT (SGPT) 27 U/L (8-55); AST (SGOT) 24 U/L (5-34); Albumin 3.7 g/dL (3.5-5.0); Alkaline Phosphatase 76 U/L (40-150); Anion Gap 10 mmol/L (10-20); BUN (Urea Nitrogen) 21 mg/dL (8.9-20.6); Bilirubin, Total 2.3 mg/dL (0.2-1.2); CK (CPK) 65 U/L (30-200); Calc. Creatinine Clearance 0 mL/min (70-130); Calcium 8.5 mg/dL (7.8-10.44); Carbon Dioxide 26 mmol/L (22-29); Chloride 103 mmol/L (98-107); Estimated GFR-MDRD 68; Globulin 2.8 g/dL (2.4-3.5); Glucose 120 mg/dL (70-105); Potassium 3.5 mmol/L (3.5-5.1); Protein, Total 6.5 g/dL (6.0-8.3); Sodium 135 mmol/L (136-145)
[2017-11-07 07:52] LABS: CKMB 4.1 ng/mL (0-6.6)
[2017-11-07 07:54] LABS: Troponin I 0.334 ng/mL (< 0.028)
[2017-11-07] MEDS ORDERED: Famotidine 40 MG/4 ML VIAL SLOW IVP SCH (08:00)
--- NOTE | 2017-11-07 08:08 | RAD ---
1 VIEW CHEST: Date: 11/07/17 HISTORY: Epigastric pain for several days. COMPARISON: 06/03/17. FINDINGS: Portable upright chest demonstrates a single lead left-sided defibrillator, unchanged. Enlarged cardi ac silhouette. Pulmonary vessels are normal. Hazy opacification in right lung base likely due to pleu ral and parenchymal changes. Adequate aeration left lung. No pneumothorax. IMPRESSION: 1. Cardiomegaly. 2. Pleural and parenchymal changes right lung base. Correlate for possible infiltrate. Continued carl veillance. POS: [facility]
--- NOTE | 2017-11-07 10:01 | HP ---
PRIMARY CARE PHYSICIAN: Lizzeth Bowden, Family Nurse Practitioner REASON FOR ADMISSION: Non-ST elevation myocardial infarction. HISTORY OF PRESENT ILLNESS: A 47-year-old male who has underlying chronic systolic and cosby tolic heart failure with EF 20-25%, who has AICD in place, who came to emergency room with complaint of epigastric abdominal pain for the last 2-3 days. He feels pressure-like sensation, sharp in natur e, constant with intermittent exacerbation with exertion. This is going on for last 2-3 days with ex ertion. He was also feeling shortness of breath. He was feeling nauseated, but he did not have any vomiting. He denies any associated diaphoresis. He denies any palpitation, dizziness or syncope. H e denies any radiation of discomfort to chest or any back, but he reports that his epigastric abdomin al pain radiates down to the umbilicus. He denies any diarrhea, but he feels constipated. His last bowel movement was yesterday, but it was scant amount. He denies any abdominal distention. He denie s any unusual food ingestion. He denies any burning discomfort or heartburn symptoms. In the emergency room, patient had an echocardiogram which showed premature ventricular complexes, le ft axis deviation without any acute ischemic changes. His chest x-ray showed cardiomegaly with pleur al parenchymal chronic lung changes and his routine blood tests showed significantly abnormal troponi n and elevated BNP. At this point, we are admitting this patient for a non-ST elevation MA as well a s patient also reports that he has dyspnea on exertion and edema over lower extremity and his BNP is also elevated, that is why we are admitting for both congestive heart failure as well, as well as non -ST-segment elevation myocardial infarction. PAST MEDICAL HISTORY: Chronic systolic and diastolic heart failure with EF 20-25% with a history of AICD, hypertension, and right pleural effusion requiring thoracentesis. PAST SURGICAL HISTORY: AICD placement, thoracentesis required for right pleural effusion. EGD showe d gastritis, laparoscopic cholecystectomy. PAST PSYCHIATRIC HISTORY: Reviewed and negative. ALLERGIES: No known drug allergy. CURRENT HOME MEDICATIONS: The patient is taking aspirin 81 mg p.o. daily, Coreg 6.25 mg p.o. b.i.d., Nexium 20 mg p.o. daily, Lasix 40 mg p.o. b.i.d., Sandisto 49 one tablet p.o. b.i.d. SOCIAL HISTORY: The patient lives at home. He works in [employer]. He is a former smoker. He denies any current smoking, alcohol or other illicit drug abuse. FAMILY HISTORY: Negative for any premature coronary artery disease, stroke or cancer. REVIEW OF SYSTEMS: The following complete review of systems was negative, unless otherwise mentioned in the HPI or below: Constitutional: Weight loss or gain, ability to conduct usual activities. Skin: Rash, itching. Eyes: Double vision, pain. ENT/Mouth: Nose bleeding, neck stiffness, pain, tenderness. Cardiovascular: Palpitations, dyspnea on exertion, orthopnea. Respiratory: Shortness of breath, wheezing, cough, hemoptysis, fever or night sweats. Gastrointestinal: Poor appetite, abdominal pain, heartburn, nausea, vomiting, constipation, or diarrhea. Genitourinary: Urgency, frequency, dysuria, nocturia. Musculoskeletal: Pain, swelling. Neurologic/Psychiatric: Anxiety, depression. Allergy/Immunologic: Skin rash, bleeding tendency. Please see my HPI for pertinent positive and negative. All other review of systems reviewed and nega tive except as mentioned in the HPI. EMERGENCY ROOM COURSE: Patient is given Pepcid 20 mg IV push. PHYSICAL EXAMINATION: VITAL SIGNS: On arrival, blood pressure of 95/72, pulse 74, respiratory rate 23, temperature 97.7, s aturation 100% on room air, weight 99.7 kilograms. GENERAL: The patient is currently alert, awake, no obvious acute distress. HEENT: Head; normocephalic, atraumatic. Eyes; pupils round, reactive to light. Extraocular muscle intact. ENT: Oropharynx within normal limits. Moist mucous membranes. No oral lesion, no pharynge al erythema, no exudate. NECK: Elevated JVD noted. No thyromegaly, no carotid bruit. LUNGS: Few basilar rales and reduced air entry, but no wheezing, no rhonchi. CARDIAC: S1, S2 appears regular with premature ventricular complexes, no gross murmur noted, no gall op, no rub. ABDOMEN: Obesity present. Bowel sounds present. The patient does report epigastric discomfort, but no peritoneal sign, no guarding, no rigidity, no rebound, no Bone's sign. BACK: Unremarkable, no CVA tenderness. EXTREMITIES: Upper extremity passive movement of all joints are normal. Lower extremities; bilatera l lower extremity pitting edema noted. Good peripheral pulsation. SKIN: No skin rash. HEMATOLOGICAL: No lymphadenopathy. PSYCHIATRIC: Normal affect. SIGNIFICANT LABS: 1. EKG showing premature ventricular complexes, left axis deviation, left atrial enlargement, nonspe cific intraventricular block. 2. Chest x-ray: Cardiomegaly, chronic right pleural and parenchymal changes. 3. CBC: WBC 6.1, hemoglobin 12.6, platelet 201. BMP: Sodium 135, potassium 3.5, chloride 103, car bon dioxide 26, anion gap 10, BUN 21, creatinine 1.14, glucose 120, calcium 8.5. 4. Bilirubin 2.3, AST 24, ALT 27, alkaline phosphatase 76, albumin 3.7, lipase 26. CK 65, CK-MB 4.1 , troponin I 0.334, BNP 2647.2. Urinalysis normal. ASSESSMENT AND PLAN: 1. Non-ST elevation myocardial infarction. This patient currently has epigastric abdominal pain whi ch he described a pressure-like sensation with nausea. He has atypical presentation. At this point troponin is significantly abnormal and I am suspecting cardiac etiology. We will do serial cardiac e nzymes x3 and will monitor on telemetry floor. Cardiology will be consulted. The patient will be gi jo aspirin 325 mg p.o. one time dose and Lovenox 1 mg per kg one time dose. Echocardiography will b e obtained. We will check lipid profile and start Lipitor to 40 mg p.o. at bedtime. We will also co ntinue Coreg 3.125 mg p.o. b.i.d. along with Entresto one tablet p.o. b.i.d. and will closely monitor and adjust medication as tolerated. 2. Acute on chronic systolic congestive heart failure. We will continue Coreg 3.125 mg p.o. b.i.d., Entresto 1 tablet p.o. b.i.d. and Lasix 20 mg IV b.i.d. If blood pressure remains low, then we will hold on Coreg therapy, but will continue to diurese 1 more day. Echocardiography will be obtained fo r EF and other structural abnormality and will monitor electrolytes and replace potassium or magnesiu m as needed basis. 3. Gastroesophageal reflux disease. This patient had upper endoscopy before and showed gastritis. We will continue Protonix 40 mg p.o. daily. 4. Chronic kidney disease stage 2. We will monitor renal function and avoid nephrotoxin agent. 5. Obesity. Dietary education given, weight loss education given. Healthy lifestyle measures discu ssed with the patient. 6. Deep venous thrombosis prophylaxis. Patient is given Lovenox 1 mg per kg subcu one time dose in the emergency room and we will continue that way twice daily. 7. Gastrointestinal prophylaxis. Patient is already on Protonix therapy. 8. Code status: The patient is full code. Patient making decisions by himself. He does not have a ny surrogate decision maker. Disposition plan based on clinical course. We are expecting patient's stay in hospital more than 2 m idnights. Plan of care discussed with the patient in detail.
[2017-11-07 10:57] LABS: Troponin I 0.452 ng/mL (< 0.028)
[2017-11-07] MEDS ORDERED: Ondansetron ODT 4 MG TAB PO PRN ×2 (11:01→11:05)
[2017-11-07] MEDS ORDERED: Ondansetron HCl/PF 4 MG/2 ML Vial IVP PRN ×2 (11:01→11:05)
[2017-11-07] MEDS ORDERED: HYDROcodone/Acetaminophen 5/325 mg Tablet PO PRN (11:05)
[2017-11-07] MEDS ORDERED: Zolpidem Tartrate 5 MG TAB PO PRN (11:05)
[2017-11-07] MEDS ORDERED: Eucerin (Mineral Oil/Petrolatum,White) 30 gm Jar TOP PRN (11:05)
[2017-11-07] MEDS ORDERED: Chloraseptic Spray 180 ml Bottle PO PRN (11:05)
[2017-11-07] MEDS ORDERED: Loperamide HCl 2 MG CAP PO PRN (11:05)
[2017-11-07] MEDS ORDERED: Mag-Al 1200 mg/1200 mg/30 ML UDCUP PO PRN (11:05)
[2017-11-07] MEDS ORDERED: Sodium Chloride 0.65% Nasal 44 ML BOT EA NARE PRN (11:05)
[2017-11-07] MEDS ORDERED: Acetaminophen 325 MG TAB PO PRN (11:05)
[2017-11-07] MEDS ORDERED: Artificial Tears 18 DROP/0.9 ML EA EYE PRN (11:05)
[2017-11-07] MEDS ORDERED: Milk Of Magnesia 30 ML UDCUP PO PRN (11:05)
[2017-11-07] MEDS ORDERED: Senokot 8.6 MG TAB PO PRN (11:05)
[2017-11-07 13:50] LABS: Critical Call Chem Troponin I RESULT DECREASING
[2017-11-07] MEDS ORDERED: Furosemide 20 MG/2 ML VIAL SLOW IVP SCH (14:00)
[2017-11-07] MEDS ORDERED: Furosemide 40 MG/4 ML VIAL SLOW IVP SCH (14:30)
--- NOTE | 2017-11-07 15:19 | CON ---
DATE OF CONSULTATION: 11/07/2017 REASON FOR CONSULTATION: Epigastric pain and elevated troponin. PRIMARY FELT STRIP FINISHER: Gerald Garcia MD HISTORY OF PRESENT ILLNESS: Mr. Berry is a very pleasant 47-year-old gentleman who is a patient of Dr. Gerald Garcia. He has a history of nonischemic cardiomyopathy. Coronary angiography in 201 6 did not suggest significant coronary artery disease. He states he recently had acute onset of upper to lower mid epigastric discomfort. It awoke him from sleep. No other associated exacerbating factors present. PAST MEDICAL HISTORY: As above including AICD placement, hypertension, pleural effusion. PAST SURGICAL HISTORY: EGD, cholecystectomy. ALLERGIES: None. MEDICATIONS: Include aspirin, Nexium, Coreg, Entresto. SOCIAL HISTORY: Previous tobacco abuse. REVIEW OF SYSTEMS: Ten-point review of systems is reviewed and as above, otherwise negative. PHYSICAL EXAMINATION: VITAL SIGNS: Blood pressure is 104/67, pulse 81, temperature 96.4. GENERAL: Patient is a pleasant male who is in no acute distress. The patient appears his stated age. NEUROLOGIC: The patient is alert and oriented times 3 with no focal neurologic deficits. HEENT: Sclerae without icterus. Mouth has moist mucous membranes with normal pallor. NECK: No JVD. Carotid upstroke brisk. No bruits bilaterally. LUNGS: Clear to auscultation with unlabored respirations. BACK: No scoliosis or kyphosis. CARDIAC: Regular rate and rhythm with normal S1 and S2. No S3 or S4 noted. No significant rubs, murmurs, thrills, or gallops noted throughout the precordium. PMI is not displa jenny. There is no parasternal heave. ABDOMEN: Pain to palpation noted in the midepigastric region with moderate palpation. EXTREMITIES: A 2+ femoral and 2+ dorsalis pedis pulses. No cyanosis, clubbing, or edema. SKIN: No gross abnormalities. PERTINENT LABS: Hemoglobin 12.6. Peak troponin 0.0450. BNP of 2647. IMPRESSION: 1. Epigastric pain. 2. Acute on chronic systolic heart failure. 3. Nonischemic cardiomyopathy. 4. Status post AICD placement. RECOMMENDATIONS: Etiology to current abdominal discomfort is unknown. From a cardiac standpoint, ma y be from passive congestion. Lasix has been ordered. We will increase Lasix to 40 mg IV b.i.d. Ab dominal ultrasound will also be performed. Otherwise, we will continue Entresto, carvedilol. We jaclyn l discontinue aspirin. The patient has a history of nonischemic cardiomyopathy.
--- NOTE | 2017-11-07 17:41 | ULT ---
ABDOMINAL ULTRASOUND: HISTORY: Mid gastric abdominal pain. TECHNIQUE: Multiplanar mar-scale and color Doppler images were obtained in a complete abdominal ultrasound. FINDINGS: The patient is status post cholecystectomy. The liver is normal in echogenicity without focal lesion s or intrahepatic ductal dilatation. The common bile duct is normal, measuring 4 mm. The aorta and inferior vena cava are normal in caliber. The pancreas cannot be visualized. The sple en is normal in echogenicity without focal lesions and measures 10.8 cm in length. Both kidneys are normal in echogenicity without hydronephrosis or calculi and measures 10.6 and 10.8 cm in length on the right and left, respectively. IMPRESSION: No significant abnormality. POS: [facility]
[2017-11-07] MEDS ORDERED: Enoxaparin Sodium 100 MG/ML SYRINGE SC SCH (21:00)
[2017-11-07] MEDS: Carvedilol 3.125 MG TAB PO SCH (21:50)
[2017-11-07] MEDS: Sacubitril 49 MG/Valsartan 51 MG TABLET PO SCH (21:50)
[2017-11-08 05:04] LABS: #Eosinphils 0.1 thou/uL (0.0-0.7); #Lymphocytes 1.8 thou/uL (1.20-3.40); #Monocytes 0.4 thou/uL (0.11-0.59); #Neutrophils 3.1 thou/uL (1.40-6.50); %Basophils 0.7 % (0.0-1.0); %Monocytes 7.8 % (0.0-10.0); %Neutrophils 56.5 % (42.0-75.0); Mean Corpuscular HGB CONC 32.5 g/dL (32.0-36.0); Mean Corpuscular Hemoglobin 27.9 pg (27.0-31.0); Mean Corpuscular Volume 86.1 fl (80.0-94.0); Mean Platelet Volume 8.2 fL (7.4-10.4); Platelet Count 195 thou/uL (130-400); RBC Distribution Width 16.2 % (11.5-14.5); Red Blood Cell (RBC) Count 4.31 mill/uL (4.70-6.10); White Blood Cell (WBC) Count 5.4 thou/uL (4.8-10.8)
[2017-11-08] MEDS: Furosemide 40 MG/4 ML VIAL SLOW IVP SCH ×2 (05:17→14:17)
[2017-11-08 05:20] VITALS: BMI 38.2
[2017-11-08 05:20] LABS: Anion Gap 10 mmol/L (10-20); BUN (Urea Nitrogen) 22 mg/dL (8.9-20.6); Calc. Creatinine Clearance 124 mL/min (70-130); Calcium 8.5 mg/dL (7.8-10.44); Carbon Dioxide 28 mmol/L (22-29); Chloride 105 mmol/L (98-107); Cholesterol 139 mg/dl (< 200 Desired); Estimated GFR-MDRD 74; Glucose 110 mg/dL (70-105); HDL Cholesterol 23 mg/dL (>60 Neg Risk); LDL Cholesterol, Calculated 97 mg/dL; Potassium 3.3 mmol/L (3.5-5.1); Sodium 140 mmol/L (136-145); Triglycerides 96 mg/dL (Less than 150); Uric Acid 9.5 mg/dL (3.5-7.2)
[2017-11-08] MEDS ORDERED: Potassium Chloride 20 MEQ TAB PO SCH (08:00)
[2017-11-08] MEDS: Carvedilol 3.125 MG TAB PO SCH ×2 (08:26→21:42)
[2017-11-08] MEDS: Enoxaparin Sodium 40 MG/0.4 ML SYRINGE SC SCH (08:27)
[2017-11-08] MEDS ORDERED: Aspirin 325 MG TAB PO SCH (09:00)
[2017-11-08] MEDS: Sacubitril 49 MG/Valsartan 51 MG TABLET PO SCH ×2 (09:06→21:42)
--- NOTE | 2017-11-08 09:21 | PDOC.PN ---
- Subjective Encounter Start Date: 11/08/17 Encounter Start Time: 07:20 -: old records requested/rev Patient seen and examined for CHF exacerbation. No new complaints. No overnight events today he does not have epigastric abdominal pain - Objective Resuscitation Status: Resuscitation Status FULL:Full Resuscitation MAR Reviewed: Yes Vital Signs & Weight: Vital Signs (12 hours) Temp Pulse Resp BP BP Pulse Ox 11/08/17 08:24 97.7 F 75 16 101/67 97 11/08/17 04:00 97.4 F L 69 20 103/55 L 95 11/08/17 00:00 98.0 F 84 16 116/68 95 Weight Weight 229 lb 9.6 oz I&O: 11/07/17 11/08/17 11/09/17 06:59 06:59 06:59 Intake Total 480 Output Total 450 Balance 30 Result Diagrams: 11/08/17 04:35 11/08/17 04:35 Radiology Reviewed by me: Yes (US abdomen, echo report) EKG Reviewed by me: Yes Phys Exam - Physical Examination Constitutional: NAD HEENT: PERRLA, moist MMs, sclera anicteric Neck: no nodes, supple, full ROM high JVD Respiratory: no wheezing, no rhonchi few basal rales Cardiovascular: RRR, no rub SM+ at apex Gastrointestinal: soft, non-tender, no distention, positive bowel sounds Musculoskeletal: pulses present, edema present Neurological: non-focal, normal sensation, moves all 4 limbs Lymphatic: no nodes Psychiatric: normal affect, A&O x 3 Skin: no rash, normal turgor Dx/Plan (1) Acute on chronic combined systolic and diastolic ACC/AHA stage C congestive heart failure Code(s): I50.43 - ACUTE ON CHRONIC COMBINED SYSTOLIC AND DIASTOLIC HRT FAIL Status: Acute (2) Epigastric abdominal pain Code(s): R10.13 - EPIGASTRIC PAIN Status: Resolved Comment: may be due to passive congestion (3) Hypokalemia Code(s): E87.6 - HYPOKALEMIA Status: Acute (4) NSTEMI (non-ST elevated myocardial infarction) Code(s): I21.4 - NON-ST ELEVATION (NSTEMI) MYOCARDIAL INFARCTION Status: Acute Comment: likely due to demand ischemia (5) Hypertension Code(s): I10 - ESSENTIAL (PRIMARY) HYPERTENSION Status: Chronic (6) Moderate mitral regurgitation Code(s): I34.0 - NONRHEUMATIC MITRAL (VALVE) INSUFFICIENCY Status: Chronic Comment: functional (7) Non-ischemic cardiomyopathy Code(s): I42.8 - OTHER CARDIOMYOPATHIES Status: Chronic (8) Obesity (BMI 30-39.9) Code(s): E66.9 - OBESITY, UNSPECIFIED Status: Chronic - Plan cont current plan of care * cardiology following * continue diuresis * continue current optimum medical therapy for CHF * may need in future cardiac transplant * medication reviewed as below * symptomatic treatment * replace potassium * repeat labs tomorrow * cardiac rehab. Review of Systems - Review of Systems ENT: negative: Ear Pain, Ear Discharge, Nose Pain, Nose Discharge, Nose Congestion, Mouth Pain, Mouth Swelling, Throat Pain, Throat Swelling, Other Respiratory: Shortness of Breath, SOB with Excertion. negative: Cough, Dry, Hemoptysis, Pleuritic Pain, Sputum, Wheezing Cardiovascular: edema. negative: chest pain, palpitations, orthopnea, paroxysmal nocturnal dyspnea, light headedness, other Gastrointestinal: negative: Nausea, Vomiting, Abdominal Pain, Diarrhea, Constipation, Melena, Hematochezia, Other Genitourinary: negative: Dysuria, Frequency, Incontinence, Hematuria, Retention , Other Musculoskeletal: negative: Neck Pain, Shoulder Pain, Arm Pain, Back Pain, Hand Pain, Leg Pain, Foot Pain, Other Skin: negative: Rash, Lesions, Ze, Bruising, Other - Medications/Allergies Allergies/Adverse Reactions: Allergies Allergy/AdvReac Type Severity Reaction Status Date / Time No Known Allergies Allergy Verified 11/07/17 11:23 Medications: Current Medications Acetaminophen (Tylenol) 650 mg PO Q4H PRN PRN Reason: Headache/Fever or Pain Hydrocodone Bitart/Acetaminophen (Roll 5/325) 1 tab PO Q4H PRN PRN Reason: Moderate Pain (4-6) Al Hydroxide/Mg Hydroxide (Maalox) 30 ml PO Q6H PRN PRN Reason: Heartburn or Indigestion Artificial Tears (Tears Naturale) 0 drop EA EYE PRN PRN PRN Reason: Dry Eyes Aspirin (Aspirin Chewable) 81 mg PO DAILY [facility] Last Admin: 11/08/17 08:27 Dose: 81 mg Carvedilol (Coreg) 3.125 mg PO BID [facility] Last Admin: 11/08/17 08:26 Dose: 3.125 mg Enoxaparin Sodium (Lovenox) 40 mg SC 0900 [facility] Last Admin: 11/08/17 08:27 Dose: 40 mg Furosemide (Lasix) 40 mg SLOW IVP 0600,1400 [facility] Last Admin: 11/08/17 05:17 Dose: 40 mg Loperamide HCl (Imodium) 2 mg PO PRN PRN PRN Reason: Diarrhea/Loose Stools Magnesium Hydroxide (Milk Of Magnesium) 30 ml PO DAILYPRN PRN PRN Reason: Constipation Mineral Oil/White Petrolatum (Eucerin Cream) 0 gm TOP BIDPRN PRN PRN Reason: Dry Skin Ondansetron HCl (Zofran Odt) 4 mg PO Q6H PRN PRN Reason: Nausea/Vomiting Ondansetron HCl (Zofran) 4 mg IVP Q6H PRN PRN Reason: Nausea/Vomiting Pantoprazole Sodium (Protonix) 40 mg PO DAILY [facility] Last Admin: 11/08/17 08:27 Dose: 40 mg Phenol (Chloraseptic [place] 180 Ml Bot) 0 ml PO PRN PRN PRN Reason: Sore Throat Potassium Chloride (K-Dur) 40 meq PO 0800 [facility] Stop: 11/08/17 10:00 Last Admin: 11/08/17 08:27 Dose: 40 meq Sacubitril/Valsartan (Entresto 49 Mg-51 Mg Tablet) 1 tab PO BID [facility] Last Admin: 11/08/17 09:06 Dose: 1 tab Senna (Senokot) 2 tab PO HSPRN PRN PRN Reason: Constipation Sodium Chloride ([place] Nasal [place] 0.65%) 0 ml EA NARE QIDPRN PRN PRN Reason: Nasal Congestion Zolpidem Tartrate (Ambien) 5 mg PO HSPRN PRN PRN Reason: Insomnia
--- NOTE | 2017-11-08 18:57 | PDOC.CTH ---
Cardiology Progress Note - Subjective He is doing better. - Objective Vital Signs Temp Pulse Pulse Pulse Resp BP BP 11/08/17 16:00 98.1 F 80 14 11/08/17 14:45 87 88 113/82 116/90 11/08/17 11:08 98.1 F 76 14 11/08/17 08:24 97.7 F 75 16 BP BP Pulse Ox Pulse Ox Pulse Ox 11/08/17 16:00 101/69 96 11/08/17 14:45 97 94 L 11/08/17 11:08 100/65 95 11/08/17 08:24 101/67 97 Weight 229 lb 9.6 oz 11/07/17 11/08/17 11/09/17 06:59 06:59 06:59 Intake Total 480 Output Total 450 Balance 30 - Physical Examination General/Neuro: alert & oriented x3, NAD Neck: no JVD present Lungs: CTA, unlabored respirations Heart: RRR Abdomen: NT/ND Extremities: + edema B (2+) - Telemetry Telemetry Rhythm: NSR - Labs Result Diagrams: 11/08/17 04:35 11/08/17 04:35 Troponin/CKMB CK-MB (CK-2) 4.1 ng/mL (0-6.6) 11/07/17 07:09 Troponin I 0.450 ng/mL (< 0.028) H* 11/07/17 13:14 - Assessment/Plan 1. Acute on chronic systolic heart failure. 2. Severe non ischemic CM EF at 10-15% 3. HTN 4. Presence of an AICD. PLAN: - Will switch to PO lasix tomorrow. hopefully home tomorrow or . . - Continue other heart failure meds. - He has already been refereed to [facility] for advanced heart failure therapies.
[2017-11-09 05:19] LABS: #Eosinphils 0.1 thou/uL (0.0-0.7); #Monocytes 0.5 thou/uL (0.11-0.59); #Neutrophils 3.2 thou/uL (1.40-6.50); %Basophils 0.7 % (0.0-1.0); %Eosinophils 1.6 % (0.0-10.0); %Lymphocytes 34.4 % (21.0-51.0); %Monocytes 8.1 % (0.0-10.0); %Neutrophils 55.1 % (42.0-75.0); Hemoglobin 12.2 g/dL (14.0-18.0); Mean Corpuscular Hemoglobin 27.9 pg (27.0-31.0); Mean Corpuscular Volume 87.1 fl (80.0-94.0); Mean Platelet Volume 8.4 fL (7.4-10.4); Platelet Count 203 thou/uL (130-400); RBC Distribution Width 16.2 % (11.5-14.5); Red Blood Cell (RBC) Count 4.38 mill/uL (4.70-6.10); White Blood Cell (WBC) Count 5.8 thou/uL (4.8-10.8)
[2017-11-09] MEDS: Furosemide 40 MG/4 ML VIAL SLOW IVP SCH (05:30)
[2017-11-09 05:46] LABS: Anion Gap 11 mmol/L (10-20); BUN (Urea Nitrogen) 21 mg/dL (8.9-20.6); Calc. Creatinine Clearance 128 mL/min (70-130); Calcium 8.9 mg/dL (7.8-10.44); Carbon Dioxide 26 mmol/L (22-29); Chloride 107 mmol/L (98-107); Estimated GFR-MDRD 77; Glucose 96 mg/dL (70-105); Magnesium 2.1 mg/dL (1.6-2.6); Potassium 3.8 mmol/L (3.5-5.1); Sodium 140 mmol/L (136-145)
[2017-11-09] MEDS: Sacubitril 49 MG/Valsartan 51 MG TABLET PO SCH ×2 (08:03→21:02)
[2017-11-09] MEDS: Enoxaparin Sodium 40 MG/0.4 ML SYRINGE SC SCH (08:03)
[2017-11-09] MEDS: Carvedilol 3.125 MG TAB PO SCH ×2 (08:03→21:02)
--- NOTE | 2017-11-09 10:06 | PDOC.PN ---
- Subjective Encounter Start Date: 11/09/17 Encounter Start Time: 07:50 Patient seen and examined for CHF. No new complaints. No overnight events - Objective Resuscitation Status: Resuscitation Status FULL:Full Resuscitation MAR Reviewed: Yes Vital Signs & Weight: Vital Signs (12 hours) Temp Pulse Resp BP Pulse Ox 11/09/17 07:58 97.6 F 78 12 102/73 94 L 11/09/17 04:00 97.3 F L 76 20 102/71 95 11/09/17 00:00 97.9 F 83 20 110/69 96 Weight Weight 228 lb 1.6 oz I&O: 11/08/17 11/09/17 11/10/17 06:59 06:59 06:59 Intake Total 480 2200 Output Total 450 2900 Balance 30 -700 Result Diagrams: 11/09/17 04:25 11/09/17 04:25 EKG Reviewed by me: Yes Phys Exam - Physical Examination Constitutional: NAD HEENT: PERRLA, moist MMs, sclera anicteric Neck: no JVD, supple Respiratory: no wheezing, no rhonchi few rales Cardiovascular: RRR, no rub SM+ Gastrointestinal: soft, non-tender, no distention, positive bowel sounds Musculoskeletal: pulses present, edema present Neurological: non-focal, normal sensation, moves all 4 limbs Psychiatric: normal affect, A&O x 3 Skin: no rash, normal turgor Dx/Plan (1) Acute on chronic combined systolic and diastolic ACC/AHA stage C congestive heart failure Code(s): I50.43 - ACUTE ON CHRONIC COMBINED SYSTOLIC AND DIASTOLIC HRT FAIL Status: Acute (2) Epigastric abdominal pain Code(s): R10.13 - EPIGASTRIC PAIN Status: Resolved Comment: may be due to passive congestion (3) Hypokalemia Code(s): E87.6 - HYPOKALEMIA Status: Acute (4) NSTEMI (non-ST elevated myocardial infarction) Code(s): I21.4 - NON-ST ELEVATION (NSTEMI) MYOCARDIAL INFARCTION Status: Acute Comment: likely due to demand ischemia (5) Hypertension Code(s): I10 - ESSENTIAL (PRIMARY) HYPERTENSION Status: Chronic (6) Moderate mitral regurgitation Code(s): I34.0 - NONRHEUMATIC MITRAL (VALVE) INSUFFICIENCY Status: Chronic Comment: functional (7) Non-ischemic cardiomyopathy Code(s): I42.8 - OTHER CARDIOMYOPATHIES Status: Chronic (8) Obesity (BMI 30-39.9) Code(s): E66.9 - OBESITY, UNSPECIFIED Status: Chronic - Plan cont current plan of care * continue one more day diuresis * will discharge tomorrow morning * medication reviewed as below * symptomatic treatment Review of Systems - Review of Systems Eyes: negative: Pain, Vision Change, Conjunctivae Inflammation, Eyelid Inflammation, Redness, Other ENT: negative: Ear Pain, Ear Discharge, Nose Pain, Nose Discharge, Nose Congestion, Mouth Pain, Mouth Swelling, Throat Pain, Throat Swelling, Other Respiratory: negative: Cough, Dry, Shortness of Breath, Hemoptysis, SOB with Excertion, Pleuritic Pain, Sputum, Wheezing Cardiovascular: negative: chest pain, palpitations, orthopnea, paroxysmal nocturnal dyspnea, edema, light headedness, other Gastrointestinal: negative: Nausea, Vomiting, Abdominal Pain, Diarrhea, Constipation, Melena, Hematochezia, Other Genitourinary: negative: Dysuria, Frequency, Incontinence, Hematuria, Retention , Other Musculoskeletal: negative: Neck Pain, Shoulder Pain, Arm Pain, Back Pain, Hand Pain, Leg Pain, Foot Pain, Other Skin: negative: Rash, Lesions, Ze, Bruising, Other - Medications/Allergies Allergies/Adverse Reactions: Allergies Allergy/AdvReac Type Severity Reaction Status Date / Time No Known Allergies Allergy Verified 11/07/17 11:23 Medications: Current Medications Acetaminophen (Tylenol) 650 mg PO Q4H PRN PRN Reason: Headache/Fever or Pain Hydrocodone Bitart/Acetaminophen ([place] 5/325) 1 tab PO Q4H PRN PRN Reason: Moderate Pain (4-6) Al Hydroxide/Mg Hydroxide (Maalox) 30 ml PO Q6H PRN PRN Reason: Heartburn or Indigestion Artificial Tears (Tears Naturale) 0 drop EA EYE PRN PRN PRN Reason: Dry Eyes Aspirin (Aspirin Chewable) 81 mg PO DAILY [facility] Last Admin: 11/09/17 08:03 Dose: 81 mg Carvedilol (Coreg) 3.125 mg PO BID [facility] Last Admin: 11/09/17 08:03 Dose: 3.125 mg Enoxaparin Sodium (Lovenox) 40 mg SC 0900 [facility] Last Admin: 11/09/17 08:03 Dose: 40 mg Furosemide (Lasix) 40 mg SLOW IVP 0600,1400 [facility] Last Admin: 11/09/17 05:30 Dose: 40 mg Loperamide HCl (Imodium) 2 mg PO PRN PRN PRN Reason: Diarrhea/Loose Stools Magnesium Hydroxide (Milk Of Magnesium) 30 ml PO DAILYPRN PRN PRN Reason: Constipation Mineral Oil/White Petrolatum (Eucerin Cream) 0 gm TOP BIDPRN PRN PRN Reason: Dry Skin Ondansetron HCl (Zofran Odt) 4 mg PO Q6H PRN PRN Reason: Nausea/Vomiting Ondansetron HCl (Zofran) 4 mg IVP Q6H PRN PRN Reason: Nausea/Vomiting Pantoprazole Sodium (Protonix) 40 mg PO DAILY [facility] Last Admin: 11/09/17 08:03 Dose: 40 mg Phenol (Chloraseptic [place] 180 Ml Bot) 0 ml PO PRN PRN PRN Reason: Sore Throat Sacubitril/Valsartan (Entresto 49 Mg-51 Mg Tablet) 1 tab PO BID [facility] Last Admin: 11/09/17 08:03 Dose: 1 tab Senna (Senokot) 2 tab PO HSPRN PRN PRN Reason: Constipation Sodium Chloride ([place] Nasal [place] 0.65%) 0 ml EA NARE QIDPRN PRN PRN Reason: Nasal Congestion Sodium Chloride (Flush - Normal Saline) 10 ml IVF Q12HR [place] Sodium Chloride (Flush - Normal Saline) 10 ml IVF PRN PRN PRN Reason: Saline Flush Zolpidem Tartrate (Ambien) 5 mg PO HSPRN PRN PRN Reason: Insomnia
--- NOTE | 2017-11-09 12:46 | PDOC.CTH ---
Cardiology Progress Note - Subjective He is doing better. Still leg edema. - Objective Vital Signs Temp Pulse Pulse Pulse Resp BP BP 11/09/17 11:42 98.0 F 76 14 11/09/17 11:07 85 78 120/73 91/70 11/09/17 07:58 97.6 F 78 12 11/09/17 04:00 97.3 F L 76 20 BP Pulse Ox Pulse Ox Pulse Ox 11/09/17 11:42 99/66 96 11/09/17 11:07 95 95 11/09/17 07:58 102/73 94 L 11/09/17 04:00 102/71 95 Weight 228 lb 1.6 oz 11/08/17 11/09/17 11/10/17 06:59 06:59 06:59 Intake Total 480 2200 Output Total 450 2900 Balance 30 -700 - Physical Examination General/Neuro: alert & oriented x3, NAD Neck: no JVD present Lungs: CTA, unlabored respirations Heart: RRR Abdomen: NT/ND Extremities: + edema B (2+) - Telemetry Telemetry Rhythm: NSR - Labs Result Diagrams: 11/09/17 04:25 11/09/17 04:25 Troponin/CKMB CK-MB (CK-2) 4.1 ng/mL (0-6.6) 11/07/17 07:09 Troponin I 0.450 ng/mL (< 0.028) H* 11/07/17 13:14 - Assessment/Plan 1. Acute on chronic systolic heart failure. 2. Severe non ischemic CM EF at 10-15% 3. HTN 4. Presence of an AICD. PLAN: - Continue IV lasix today. - Continue other heart failure meds. - Likely home tomorrow.
[2017-11-09] MEDS ORDERED: Furosemide 100 MG/10 ML VIAL SLOW IVP SCH (14:00)
--- NOTE | 2017-11-10 09:23 | DIS ---
DATE OF ADMISSION: 11/07/2017 DATE OF DISCHARGE: 11/10/2017 PRIMARY CARE PHYSICIAN: [facility] DISCHARGE DISPOSITION: Home. PRIMARY DISCHARGE DIAGNOSES: Acute on chronic combined systolic and diastolic heart failure, ACC sta ge C; hypokalemia, corrected; epigastric abdominal pain due to passive congestion; non-ST elevation m yocardial infarction type 2 due to demand ischemia. SECONDARY DISCHARGE DIAGNOSES: Nonischemic cardiomyopathy, chronic systolic and diastolic heart fail ure, obesity with BMI 37, hypertension, moderate mitral regurgitation. PRIMARY PROCEDURE AND OPERATION: None. RADIOLOGICAL INVESTIGATION: Chest x-ray showed pulmonary vascular congestion. Abdominal ultrasound showed no acute process. Echocardiography showed EF 10%-15%, diastolic dysfunction, moderate mitral regurgitation. SIGNIFICANT LABORATORY DATA: WBC 5.8, hemoglobin 12.2, platelet 203. Sodium 140, potassium 3.8, BUN 21, creatinine 1.03. Magnesium 2.1, calcium 8.9, troponin 0.450, LDL 97. Lipase 26. Urinalysis no rmal. DISCHARGE MEDICATIONS: Aspirin 81 mg p.o. daily, Coreg 6.25 mg p.o. b.i.d., Nexium 20 mg p.o. daily, Lasix 40 mg p.o. b.i.d., Entresto 49/51 one tablet twice daily, Lipitor 10 mg p.o. at bedtime. CONTRAINDICATIONS: None. CODE STATUS: FULL CODE. INPATIENT CONSULTANTS: Dr. Garcia was following while in hospital. TEST RESULTS PENDING ON DISCHARGE: None. ALLERGIES: No known drug allergy. DISCHARGE PLAN: Post hospital, the patient will follow up with [facility] on 11/29/2017. Patient will follow up with primary care physician on 11/16/2017. Patient is instructed to follow up with Cardiology. HOSPITAL COURSE: A 47-year-old male who has nonischemic cardiomyopathy. He presented to emergency r oom with epigastric abdominal pain. In the emergency room, abdominal ultrasound was unremarkable. H e had significantly abnormal troponin in non-STEMI range. Initially, we suspected that epigastric ab dominal pain may be atypical angina equivalent. At the same time, patient was also having dyspnea on exertion and increasing lower extremity edema, orthopnea. Patient also had acute on chronic systoli c and diastolic heart failure. His BNP was elevated. During this admission, we started with IV Lasi x and patient has significant clinical improvement in his epigastric abdominal pain. At that point, we suspected that his epigastric pain was related with passive congestion in liver and abnormal tropo anita was related with demand ischemia. Cardiology did not perform any cardiac catheterization during this admission. He was appropriately treated with diuretic therapy and electrolyte was replaced. To day, the patient is more stable. He is on room air. He is ambulatory. He is completely symptom mima e. Today, I have provided him dietary education, fluid restriction and medication education. He jaclyn l continue all his previous medication. We added Lipitor on his regimen. The patient will follow up with Cardiology Heart Failure Clinic and primary care physician. PHYSICAL EXAMINATION: The patient is seen and examined at bedside today. VITAL SIGNS: Currently, temperature 97.7, pulse 80, respiratory rate 20, saturation 100% on room air , blood pressure 107/74, weight 227 pounds. GENERAL: The patient is currently alert, awake, no acute distress. HEAD: Normocephalic, atraumatic. EYES: Pupils round, reactive to light. Extraocular muscle intact. ENT: Oropharynx within normal limits. Moist mucous membranes, no oral lesion, no pharyngeal erythem a, no exudate. NECK: Supple, no JVD, no thyromegaly, no carotid bruit. LUNGS: Clear to auscultation without any rhonchi or rales. CARDIAC: S1, S2 regular without any significant murmur. ABDOMEN: Soft and benign without any tenderness. EXTREMITIES: No edema. NEUROLOGIC: Nonfocal examination. Overall, the patient is medically stable for discharge today.
[2017-11-10 09:38] VITALS: BP 114/71; TEMP 97.6
--- NOTE | 2017-11-10 09:53 | PDOC.PN ---
- Subjective Encounter Start Date: 11/10/17 Encounter Start Time: 09:20 -: old records requested/rev Patient seen and examined. No new complaints. No overnight events - Objective Resuscitation Status: Resuscitation Status FULL:Full Resuscitation MAR Reviewed: Yes Vital Signs & Weight: Vital Signs (12 hours) Temp Pulse Resp BP BP Pulse Ox 11/10/17 08:30 97.6 F 85 20 114/71 92 L 11/10/17 04:00 97.7 F 80 20 107/74 100 Weight Weight 227 lb 3.2 oz I&O: 11/09/17 11/10/17 11/11/17 06:59 06:59 06:59 Intake Total 2200 1860 Output Total 2900 1700 Balance -700 160 Result Diagrams: 11/09/17 04:25 11/09/17 04:25 EKG Reviewed by me: Yes Phys Exam - Physical Examination Constitutional: NAD HEENT: PERRLA, moist MMs, sclera anicteric Neck: no JVD, supple Respiratory: no wheezing, no rales, no rhonchi Cardiovascular: RRR, no significant murmur, no rub Gastrointestinal: soft, non-tender, no distention, positive bowel sounds Musculoskeletal: no edema, pulses present Neurological: non-focal, normal sensation, moves all 4 limbs Psychiatric: normal affect, A&O x 3 Skin: no rash, normal turgor Dx/Plan (1) Acute on chronic combined systolic and diastolic ACC/AHA stage C congestive heart failure Code(s): I50.43 - ACUTE ON CHRONIC COMBINED SYSTOLIC AND DIASTOLIC HRT FAIL Status: Acute (2) Epigastric abdominal pain Code(s): R10.13 - EPIGASTRIC PAIN Status: Resolved Comment: may be due to passive congestion (3) Hypokalemia Code(s): E87.6 - HYPOKALEMIA Status: Acute (4) NSTEMI (non-ST elevated myocardial infarction) Code(s): I21.4 - NON-ST ELEVATION (NSTEMI) MYOCARDIAL INFARCTION Status: Acute Comment: likely due to demand ischemia (5) Hypertension Code(s): I10 - ESSENTIAL (PRIMARY) HYPERTENSION Status: Chronic (6) Moderate mitral regurgitation Code(s): I34.0 - NONRHEUMATIC MITRAL (VALVE) INSUFFICIENCY Status: Chronic Comment: functional (7) Non-ischemic cardiomyopathy Code(s): I42.8 - OTHER CARDIOMYOPATHIES Status: Chronic (8) Obesity (BMI 30-39.9) Code(s): E66.9 - OBESITY, UNSPECIFIED Status: Chronic - Plan cont current plan of care * medication reviewed as below * symptomatic treatment * see discharge padma. Review of Systems - Review of Systems Eyes: negative: Pain, Vision Change, Conjunctivae Inflammation, Eyelid Inflammation, Redness, Other ENT: negative: Ear Pain, Ear Discharge, Nose Pain, Nose Discharge, Nose Congestion, Mouth Pain, Mouth Swelling, Throat Pain, Throat Swelling, Other Respiratory: negative: Cough, Dry, Shortness of Breath, Hemoptysis, SOB with Excertion, Pleuritic Pain, Sputum, Wheezing Cardiovascular: negative: chest pain, palpitations, orthopnea, paroxysmal nocturnal dyspnea, edema, light headedness, other Gastrointestinal: negative: Nausea, Vomiting, Abdominal Pain, Diarrhea, Constipation, Melena, Hematochezia, Other Genitourinary: negative: Dysuria, Frequency, Incontinence, Hematuria, Retention , Other Musculoskeletal: negative: Neck Pain, Shoulder Pain, Arm Pain, Back Pain, Hand Pain, Leg Pain, Foot Pain, Other Skin: negative: Rash, Lesions, Ze, Bruising, Other - Medications/Allergies Allergies/Adverse Reactions: Allergies Allergy/AdvReac Type Severity Reaction Status Date / Time No Known Allergies Allergy Verified 11/07/17 11:23 Medications: Current Medications Acetaminophen (Tylenol) 650 mg PO Q4H PRN PRN Reason: Headache/Fever or Pain Hydrocodone Bitart/Acetaminophen ([place] 5/325) 1 tab PO Q4H PRN PRN Reason: Moderate Pain (4-6) Al Hydroxide/Mg Hydroxide (Maalox) 30 ml PO Q6H PRN PRN Reason: Heartburn or Indigestion Artificial Tears (Tears Naturale) 0 drop EA EYE PRN PRN PRN Reason: Dry Eyes Aspirin (Aspirin Chewable) 81 mg PO DAILY [facility] Last Admin: 11/09/17 08:03 Dose: 81 mg Carvedilol (Coreg) 3.125 mg PO BID [facility] Last Admin: 11/09/17 21:02 Dose: 3.125 mg Enoxaparin Sodium (Lovenox) 40 mg SC 0900 [facility] Last Admin: 11/09/17 08:03 Dose: 40 mg Loperamide HCl (Imodium) 2 mg PO PRN PRN PRN Reason: Diarrhea/Loose Stools Magnesium Hydroxide (Milk Of Magnesium) 30 ml PO DAILYPRN PRN PRN Reason: Constipation Mineral Oil/White Petrolatum (Eucerin Cream) 0 gm TOP BIDPRN PRN PRN Reason: Dry Skin Ondansetron HCl (Zofran Odt) 4 mg PO Q6H PRN PRN Reason: Nausea/Vomiting Ondansetron HCl (Zofran) 4 mg IVP Q6H PRN PRN Reason: Nausea/Vomiting Pantoprazole Sodium (Protonix) 40 mg PO DAILY [facility] Last Admin: 11/09/17 08:03 Dose: 40 mg Phenol (Chloraseptic [place] 180 Ml Bot) 0 ml PO PRN PRN PRN Reason: Sore Throat Sacubitril/Valsartan (Entresto 49 Mg-51 Mg Tablet) 1 tab PO BID [facility] Last Admin: 11/09/17 21:02 Dose: 1 tab Senna (Senokot) 2 tab PO HSPRN PRN PRN Reason: Constipation Sodium Chloride ([place] Nasal [place] 0.65%) 0 ml EA NARE QIDPRN PRN PRN Reason: Nasal Congestion Sodium Chloride (Flush - Normal Saline) 10 ml IVF Q12HR [facility] Last Admin: 11/09/17 21:02 Dose: 10 ml Sodium Chloride (Flush - Normal Saline) 10 ml IVF PRN PRN PRN Reason: Saline Flush Zolpidem Tartrate (Ambien) 5 mg PO HSPRN PRN PRN Reason: Insomnia
[2017-11-10] MEDS: Carvedilol 3.125 MG TAB PO SCH (09:58)
[2017-11-10] MEDS: Sacubitril 49 MG/Valsartan 51 MG TABLET PO SCH (09:58)
[2017-11-10] MEDS: Enoxaparin Sodium 40 MG/0.4 ML SYRINGE SC SCH (09:58)
== END 2017-11-10 12:01 | disposition home or self-care (01) | DRG 280 ==
LOC: ERS 06:33 → 2NO 09:25
PROVIDERS: ADMIT Internal Medicine; ATTEND Internal Medicine
DX: I13.0 Hypertensive heart and chronic kidney disease with heart failure and stage 1 through stage 4 chronic kidney disease, or unspecified chronic kidney disease (principal); I21.A1 Myocardial infarction type 2; I50.43 Acute on chronic combined systolic (congestive) and diastolic (congestive) heart failure; I42.9 Cardiomyopathy, unspecified; N18.2 Chronic kidney disease, stage 2 (mild); E87.6 Hypokalemia; I34.0 Nonrheumatic mitral (valve) insufficiency; K21.9 Gastro-esophageal reflux disease without esophagitis; E66.9 Obesity, unspecified; Z68.37 Body mass index [BMI] 37.0-37.9, adult; Z87.891 Personal history of nicotine dependence; Z79.82 Long term (current) use of aspirin; Z79.899 Other long term (current) drug therapy; Z95.810 Presence of automatic (implantable) cardiac defibrillator
CPT/HCPCS: 36415; 71045; 76700; 80048; 80053; 80061; 81003; 82553; 83690; 83735; 83880; 84484; 84550; 85025; 93005; 93306; 93798; 96374; A4216; J1650; J1940

== ENCOUNTER 2018-06-10 18:24 | Inpatient (IN) | payer BC, OTHER, SELFPAY ==
[~2018-06-10 18:24] MED LIST changes: -ISOVUE-370 76%-LOCM 1 ML ONE; +Iopamidol 370 76% 100 ML VIAL ONE
[2018-06-10 18:51] LABS: #Basophils 0.1 thou/uL (0.0-0.2); #Lymphocytes 2.1 thou/uL (1.20-3.40); #Monocytes 0.5 thou/uL (0.11-0.59); %Basophils 0.7 % (0.0-1.0); %Eosinophils 0.4 % (0.0-10.0); %Lymphocytes 27.3 % (21.0-51.0); %Monocytes 6.2 % (0.0-10.0); %Neutrophils 65.5 % (42.0-75.0); Hemoglobin 14.2 g/dL (14.0-18.0); Mean Corpuscular HGB CONC 33.3 g/dL (32.0-36.0); Mean Corpuscular Hemoglobin 29.4 pg (27.0-31.0); Mean Corpuscular Volume 88.4 fL (78.0-98.0); Mean Platelet Volume 9.3 fL (7.4-10.4); Platelet Count 210 thou/uL (130-400); RBC Distribution Width 15.4 % (11.5-14.5); Red Blood Cell (RBC) Count 4.84 mill/uL (4.70-6.10); White Blood Cell (WBC) Count 7.6 thou/uL (4.8-10.8)
[2018-06-10 19:13] LABS: ALT (SGPT) 21 U/L (8-55); AST (SGOT) 21 U/L (5-34); Albumin 4.4 g/dL (3.5-5.0); Alkaline Phosphatase 95 U/L (40-150); Anion Gap 17 mmol/L (10-20); BUN (Urea Nitrogen) 20 mg/dL (8.9-20.6); Bilirubin, Total 2.4 mg/dL (0.2-1.2); CK (CPK) 90 U/L (30-200); Calc. Creatinine Clearance 0 mL/min (70-130); Calcium 9.3 mg/dL (7.8-10.44); Carbon Dioxide 24 mmol/L (22-29); Chloride 103 mmol/L (98-107); Estimated GFR-MDRD 53; Globulin 3.8 g/dL (2.4-3.5); Glucose 173 mg/dL (70-105); Lipase 13 U/L (8-78); Potassium 3.7 mmol/L (3.5-5.1); Protein, Total 8.2 g/dL (6.0-8.3); Sodium 140 mmol/L (136-145)
--- NOTE | 2018-06-10 19:16 | RAD ---
PORTABLE AP CHEST X-RAY 06/10/18 HISTORY: Chest pain. Epigastric pain. COMPARISON: 11/07/17. FINDINGS: There is alveolar opacity with developing consolidation seen in the right lower lobe worrisome for pn eumonia. There is suboptimal evaluation of the left lung base due to technique of the study and atele ctasis or infiltrate at the left lung base cannot be entirely excluded. Cardiac silhouette is magnifi ed by projection, but again appears mildly enlarged. A single lead left subclavian AICD device remain s in place. Pulmonary vasculature is at the upper limits of normal. No other interval change. IMPRESSION: 1. Alveolar opacity with developing consolidation at the right lung base and to a lesser extent the right mid lung zone. Findings are worrisome for pneumonia. Followup to complete resolution is rec ommended. 2. Suboptimal evaluation of the left lung base. Infiltrate or atelectasis left lung base cannot be excluded. 3. Cardiomegaly with pulmonary vasculature at the upper limits of normal. 1. POS: [facility]
[2018-06-10] MEDS ORDERED: Azithromycin 500 MG VIAL ONE (19:32)
[2018-06-10] MEDS ORDERED: cefTRIAXone\\ROCEPHIN 2 GM VIAL ONE (19:32)
[2018-06-10] MEDS ORDERED: Furosemide 40 MG TAB ONE (19:56)
[2018-06-10] MEDS ORDERED: Furosemide 40 MG/4 ML VIAL ONE (19:57)
[2018-06-10] MEDS ORDERED: Ondansetron PF 4 MG/2 ML Vial IVP PRN (20:42)
[2018-06-10] MEDS ORDERED: Ondansetron PF 4 MG/2 ML Vial ONE (21:02)
[2018-06-10] MEDS ORDERED: Morphine 4 MG/ML VIAL ONE (21:10)
[2018-06-10 21:19] LABS: Bilirubin Negative (Negative); Blood, Urine Negative (Negative); Clarity CLEAR (Clear); Glucose, Urine (Dipstick) Negative (Negative); Leukocyte Negative (Negative); Nitrite Negative (Negative); Protein, Urine (Dipstick) Negative (Neg-Trace); Specific Gravity, Urine 1.011 (1.002-1.036); pH, Urine 6.5 (5.0-9.0)
--- NOTE | 2018-06-10 21:44 | CT ---
CT ANGIOGRAM CHEST AND ABDOMEN WITH IV CONTRAST AND 3D RECONSTRUCTIONS: 06/10/18 HISTORY: Epigastric abdominal pain. COMPARISON: CT thorax on 08/26/[address] abdomen on 03/28/17. FINDINGS: There is suboptimal timing of the contrast bolus, and the thoracic and abdominal aorta are not opacif ied. There is good opacification of the pulmonary arteries, and no filling defect is seen in the pulmonary arteries to suggest a pulmonary embolus. The heart is enlarged. Small bilateral pleural effusions are present, greater on the right with associated passive atelectas is. Minimal vascular calcifications are seen in the thoracic as well as abdominal aorta and involving the coronary arteries. There are patchy areas of increased density seen within the right upper lobe worrisome for infectious or inflammatory process. Ground glass densities are seen in each lung base. Single lead left subclavian cardiac pacemaking device is noted in place. Post cholecystectomy changes are noted. The liver, spleen, pancreas, bilateral adrenal glands, and kidneys demonstrate a grossly normal nonen hanced CT appearance. IMPRESSION: 1. Suboptimal timing of the contrast bolus, and the thoracic and abdominal aorta area not opacif ied. Aortic dissection cannot be excluded based on this examination. There is no aneurysmal dilatatio n of the thoracic or abdominal aorta. 2. No CT evidence of a pulmonary embolus. 3. Cardiomegaly. 4. Small bilateral pleural effusions. 5. Patchy density in the right upper lobe which may be related to infectious or inflammatory pro cess. 6. Ground glass densities within the lungs bilaterally which may be attributable to either an el ement of pulmonary edema or infectious process. Followup to resolution is recommended. 7. Cholecystectomy. 8. Cardiomegaly. 9. Above findings discussed with Dr. Avila in the Emergency Department on 06/10/18 at 2129 hour s. POS: [facility]
[2018-06-10] MEDS: Carvedilol 3.125 MG TAB PO SCH (22:53)
[2018-06-10] MEDS: Sacubitril 49 MG/Valsartan 51 MG TABLET PO SCH (22:53)
[2018-06-10] MEDS ORDERED: Acetaminophen 325 MG TAB PO PRN (23:03)
[2018-06-10 23:44] VITALS: BMI 41.5
[2018-06-11 06:18] LABS: Anion Gap 15 mmol/L (10-20); BUN (Urea Nitrogen) 19 mg/dL (8.9-20.6); Calc. Creatinine Clearance 118 mL/min (70-130); Calcium 8.7 mg/dL (7.8-10.44); Carbon Dioxide 25 mmol/L (22-29); Chloride 104 mmol/L (98-107); Estimated GFR-MDRD 64; Glucose 135 mg/dL (70-105); Sodium 140 mmol/L (136-145)
[2018-06-11 07:02] LABS: #Basophils 0.1 thou/uL (0.0-0.2); #Lymphocytes 1.2 thou/uL (1.20-3.40); #Monocytes 0.6 thou/uL (0.11-0.59); #Neutrophils 6.6 thou/uL (1.40-6.50); %Basophils 1.5 % (0.0-1.0); %Eosinophils 0.3 % (0.0-10.0); %Lymphocytes 13.6 % (21.0-51.0); %Monocytes 6.5 % (0.0-10.0); %Neutrophils 78.2 % (42.0-75.0); Anisocytosis SLIGHT = 6-15 cells (100X) (0-5/hpf); Hemoglobin 12.7 g/dL (14.0-18.0); MDiff Complete? YES; Mean Corpuscular Hemoglobin 30.2 pg (27.0-31.0); Mean Platelet Volume 9.5 fL (7.4-10.4); Platelet Count 195 thou/uL (130-400); RBC Distribution Width 15.5 % (11.5-14.5); Red Blood Cell (RBC) Count 4.21 mill/uL (4.70-6.10); White Blood Cell (WBC) Count 8.5 thou/uL (4.8-10.8)
[2018-06-11] MEDS: Furosemide 40 MG/4 ML VIAL SLOW IVP SCH (09:38)
[2018-06-11] MEDS: Sacubitril 49 MG/Valsartan 51 MG TABLET PO SCH ×2 (09:38→20:50)
[2018-06-11] MEDS: Atorvastatin Calcium 10 MG TAB PO SCH (09:38)
[2018-06-11] MEDS: Enoxaparin Sodium 40 MG/0.4 ML SYRINGE SC SCH (09:38)
[2018-06-11] MEDS: Carvedilol 3.125 MG TAB PO SCH ×2 (09:39→20:46)
[2018-06-11] MEDS: Azithromycin 500 MG in Sodium Chloride 0.9% 250 ML 250 ML IVPB SCH (18:20)
--- NOTE | 2018-06-11 20:17 | HP ---
CHIEF COMPLAINT: Abdominal pain. HISTORY OF PRESENT ILLNESS: The patient is a very pleasant 48-year-old male with a history of systolic heart failure, EF of 10% to 15%, also with a history of hypertension, who presented to the hospital with complaints of abdominal pain. The patient stated that since Tuesday he has been having some upper abdominal pain. He stated that he did not feel well, so he came into the ER for further evaluation. The patient denies any fevers or chills, but stated that he was nauseated and had emesis x1 yesterday. The patient states currently he does not have any epigastric pain at all. The patient, however, does state that he has been noncompliant with his salt intake and water intake and also feels that he has gained some weight. The patient states that he is unable to weigh himself daily since his scale is not working and he needs to buy a new one. He stated that he is compliant with his medication and he is going to go to Cardiology's office for samples for Entresto. PAST MEDICAL HISTORY: 1. Systolic heart failure. 2. Hypertension. PAST SURGICAL HISTORY: He has had AICD placement, thoracentesis requiring right pleural effusion, and also had an EGD and laparoscopic cholecystectomy. ALLERGIES: HE HAS NO KNOWN DRUG ALLERGIES. MEDICATIONS: He takes 1. Aspirin 81 mg daily. 2. Coreg 6.25 mg b.i.d. 3. Nexium 20 mg daily. 4. Lasix 40 mg b.i.d. 5. Entresto 1 tablet twice a day. SOCIAL HISTORY: He lives alone. He denies any smoking history or alcohol or drug use. He is a full code per patient. FAMILY HISTORY: Negative for heart disease, strokes, or cancers. REVIEW OF SYSTEMS: All negative except for the ones mentioned above in HPI. PHYSICAL EXAMINATION: VITAL SIGNS: As of the following; his temperature was 97.8, 83, 16, 97% on room air, 107/78. GENERAL: He is awake, alert, and oriented x3. Does not appear in distress. CV: S1 and S2 present. No murmurs, rubs, or gallops. LUNGS: Clear to auscultation. No rhonchi or wheezes noted. ABDOMEN: Soft and nontender. Bowel sounds are present x2. EXTREMITIES: Mild +1 lower extremity pitting edema. NEUROLOGIC: No focal deficits noted. SKIN: No cuts, lesions, or bruises noted. LABORATORY DATA: WBCs of 8.5, hemoglobin of 12.7, hematocrit of 37.4, platelets of 195. Chemistry; sodium of 140, potassium of 4.0, BUN of 19, creatinine of 1.20. His troponin x1 was negative. His proBNP was 4109. Chest x-ray, the patient actually had a CT dissection protocol, which did not indicate any pulmonary emboli, but did indicate that he did have some patchy density in the right upper lobe, which may be related to infectious versus inflammatory process. He also had some ground-glass density. It was noted in the lung bilaterally. ASSESSMENT AND PLAN: 1. The patient is a very pleasant 48-year-old male, who presents to the hospital with complaints of abdominal pain, [id number] systolic heart failure. The patient's proBNP is significantly elevated. He does have significant lower extremity edema and the patient states that he feels much better with his abdominal pain after he received IV diuretics. We will also consult Cardiology. I have educated him on salt intake and water intake and also the importance of weighing him daily. I will continue his home medications and continue to diurese this patient. 2. Mild anemia appears to be normocytic. We will continue to monitor. It looks like that is the patient's baseline hemoglobin. 3. Hypertension. Currently, his blood pressure is 107/78. We will continue to monitor. 4. Deep venous thrombosis prophylaxis. We will put the patient on Lovenox. 5. Pneumonia. It was noted on the x-ray; however, the patient denies any cough or chills and he does not have a white count. We will just go ahead and treat him for community-acquired pneumonia and continue to monitor. Job ID: [id number]
[2018-06-11] MEDS: cefTRIAXone\\ROCEPHIN 1 GM in Sodium Chloride 0.9% 100 ML IVPB SCH (20:47)
[2018-06-12] MEDS: Enoxaparin Sodium 40 MG/0.4 ML SYRINGE SC SCH (08:40)
[2018-06-12] MEDS: Atorvastatin Calcium 10 MG TAB PO SCH (08:41)
[2018-06-12] MEDS: Furosemide 40 MG/4 ML VIAL SLOW IVP SCH (08:41)
[2018-06-12] MEDS: Carvedilol 3.125 MG TAB PO SCH ×2 (08:41→21:08)
[2018-06-12] MEDS: Sacubitril 49 MG/Valsartan 51 MG TABLET PO SCH ×2 (08:41→21:09)
--- NOTE | 2018-06-12 12:47 | PDOC.PN ---
- Subjective Encounter Start Date: 06/12/18 Encounter Start Time: 10:15 Subjective: pt up in bed feels much better - Objective Resuscitation Status - Order Detail: 06/10/18 20:42 Resuscitation Status Routine Resuscitation Status: FULL: Full Resuscitation Vital Signs & Weight: Vital Signs (12 hours) Temp Pulse Resp BP Pulse Ox 06/12/18 11:32 97.6 F 75 18 99/62 98 06/12/18 08:00 97 06/12/18 07:18 99.4 F 77 14 94/63 97 06/12/18 04:00 97.8 F 76 18 107/60 97 Weight Weight 250 lb I&O: 06/11/18 06/12/18 06/13/18 06:59 06:59 06:59 Intake Total 570 Balance 570 Result Diagrams: 06/11/18 05:08 06/11/18 05:08 Phys Exam - Physical Examination Neck: no nodes, no JVD, supple, full ROM Respiratory: no wheezing, no rales, no rhonchi, wheezing present, clear to auscultation bilateral Cardiovascular: RRR, no significant murmur, no rub, gallop, irregular Gastrointestinal: soft, non-tender, no distention, positive bowel sounds Musculoskeletal: no edema, pulses present, edema present Dx/Plan (1) Acute on chronic combined systolic and diastolic ACC/AHA stage C congestive heart failure Code(s): I50.43 - ACUTE ON CHRONIC COMBINED SYSTOLIC AND DIASTOLIC HRT FAIL Status: Acute (2) Hypertension Code(s): I10 - ESSENTIAL (PRIMARY) HYPERTENSION Status: Chronic (3) Obesity (BMI 30-39.9) Code(s): E66.9 - OBESITY, UNSPECIFIED Status: Chronic (4) Pneumonia Code(s): J18.9 - PNEUMONIA, UNSPECIFIED ORGANISM Status: Acute - Plan will continue lasix for now -: will also continue abx for now -: possible dicharge in the next 24h * . Review of Systems - Review of Systems Respiratory: negative: Cough, Dry, Shortness of Breath, Hemoptysis, SOB with Excertion, Pleuritic Pain, Sputum, Wheezing Cardiovascular: negative: chest pain, palpitations, orthopnea, paroxysmal nocturnal dyspnea, edema, light headedness, other Gastrointestinal: negative: Nausea, Vomiting, Abdominal Pain, Diarrhea, Constipation, Melena, Hematochezia, Other Genitourinary: negative: Dysuria, Frequency, Incontinence, Hematuria, Retention , Other - Medications/Allergies Allergies/Adverse Reactions: Allergies Allergy/AdvReac Type Severity Reaction Status Date / Time No Known Allergies Allergy Verified 11/07/17 11:23 Medications: Current Medications Acetaminophen (Tylenol) 650 mg PO Q6H PRN PRN Reason: Headache/Fever or Pain Albuterol/Ipratropium (Duoneb) 3 ml NEB [id number] [facility] Last Admin: 06/12/18 10:15 Dose: Not Given Aspirin (Aspirin Chewable) 81 mg PO DAILY [facility] Last Admin: 06/12/18 08:41 Dose: 81 mg Atorvastatin Calcium (Lipitor) 10 mg PO DAILY [facility] Last Admin: 06/12/18 08:41 Dose: 10 mg Carvedilol (Coreg) 6.25 mg PO BID [facility] Last Admin: 06/12/18 08:41 Dose: 6.25 mg Enoxaparin Sodium (Lovenox) 40 mg SC 0900 [facility] Last Admin: 06/12/18 08:40 Dose: 40 mg Furosemide (Lasix) 40 mg SLOW IVP DAILY [facility] Last Admin: 06/12/18 08:41 Dose: 40 mg Azithromycin 500 mg/ Sodium (Chloride) 250 mls @ 250 mls/hr IVPB 1800 [facility] Last Admin: 06/11/18 18:20 Dose: 250 mls Ceftriaxone Sodium 1 gm/ (Sodium Chloride) 100 mls @ 200 mls/hr IVPB Q24HR [facility] Last Admin: 06/11/18 20:47 Dose: 100 mls Ondansetron HCl (Zofran) 4 mg IVP Q6H PRN PRN Reason: Nausea/Vomiting Pantoprazole Sodium (Protonix) 40 mg PO DAILY [facility] Last Admin: 06/12/18 08:41 Dose: 40 mg Sacubitril/Valsartan (Entresto 49 Mg-51 Mg Tablet) 1 tab PO BID [facility] Last Admin: 06/12/18 08:41 Dose: 1 tab
--- NOTE | 2018-06-12 17:48 | CON ---
DATE OF CONSULTATION: 06/12/2018 TYPE OF CONSULTATION: Cardiology REASON FOR CONSULTATION: Heart failure. HISTORY OF PRESENT ILLNESS: Mr. Olivares is a very pleasant 48-year-old gentleman, who comes to the hospital for abdominal pain and chest pain. He has a history of nonischemic cardiomyopathy with an EF of around 10% to 15%, thought to be secondary to hypertension. He has been compliant with all his medications and all his followups. He used to have insurance, but lost his job eventually due to all the times he had to be off work, from being in the hospital in heart failure, so he was fired and he has been uninsured since, but he actually continues to show up to his visits and continues to take his medications. He came in because he started noticing pain on the right lower part of his chest. When he took a deep breath, it was a little worse. He also felt pain in his belly and around that same side. He came in secondary to this and was found to be in a little bit of heart failure. He feels he drank a little bit more water than normal, maybe a little salt, but he does not feel that it has been in any significant amount as to the way he feels as he has done this several times in the past without issues. Denies any cough, fevers, or chills. PAST MEDICAL HISTORY: 1. History of nonischemic cardiomyopathy. 2. Hypertension. 3. AICD placement for primary prevention from sudden cardiac . PAST SURGICAL HISTORY: 1. AICD placement. 2. Thoracentesis for right pleural effusion. 3. EGD, laparoscopic cholecystectomy. OUTPATIENT MEDICATIONS: Include; 1. Aspirin 81 mg a day. 2. Coreg 6.25 mg b.i.d. 3. Nexium 20 mg a day. 4. Lasix 40 mg twice a day. 5. Entresto 24/ b.i.d. ALLERGIES: NO KNOWN DRUG ALLERGIES. SOCIAL HISTORY: No alcohol, tobacco, or drugs. FAMILY HISTORY: No early coronary artery disease. REVIEW OF SYSTEMS: A 12-point review of systems was done and was found to be negative other than stated in the history of present illness. PHYSICAL EXAMINATION: VITAL SIGNS: Temperature 99.7, pulse 79, respiratory rate 20, saturating 98% on room air, blood pressure 92/65. GENERAL: Awake, alert, oriented x3, in no distress. HEENT: Normocephalic, atraumatic. NECK: Supple. LUNGS: Clear. CARDIOVASCULAR: S1 and S2. No S3 or S4. No murmurs. ABDOMEN: Soft. Positive bowel sounds. EXTREMITIES: 2+ edema. SKIN: Warm and dry. LABORATORY WORK: Reviewed. CBC with a white count of 7.6, hemoglobin of 14.2, hematocrit 42, platelet count 210. Chemistry unremarkable. BUN and creatinine of 19 and 1.2. Creatinine is better at 1.4 on admission, better after diuresis. BNP was 4000. Troponin is negative x3. UA is unremarkable. CT dissection protocol shows no CT evidence of pulmonary embolus, cardiomegaly, small bilateral pleural effusions, patchy density in the right upper lobe which may be related to infectious or inflammatory process, ground-glass opacities in bilateral lungs likely pulmonary edema. Chest x-ray concerning for right lower lobe infiltrate. ASSESSMENT: 1. Acute on chronic systolic heart failure. 2. Possible community-acquired pneumonia. 3. Hypertension, actually on low side now. PLAN: 1. Continue IV Lasix for now, currently 40 IV daily. We will increase to 40 IV b.i.d. 2. Continue IV antibiotics per primary team. 3. Continue home medications; blood pressure is borderline low, but he has tolerated this in the past. Thank you for letting me to participate in the care of this patient, we will follow. Job ID: [id number]
[2018-06-12] MEDS: Azithromycin 500 MG in Sodium Chloride 0.9% 250 ML 250 ML IVPB SCH (18:08)
[2018-06-12] MEDS: cefTRIAXone\\ROCEPHIN 1 GM in Sodium Chloride 0.9% 100 ML IVPB SCH (21:09)
[2018-06-13] MEDS: Furosemide 40 MG/4 ML VIAL SLOW IVP SCH ×2 (05:34→14:48)
[2018-06-13] MEDS: Enoxaparin Sodium 40 MG/0.4 ML SYRINGE SC SCH (08:56)
[2018-06-13] MEDS: Carvedilol 3.125 MG TAB PO SCH ×2 (08:56→20:16)
[2018-06-13] MEDS: Atorvastatin Calcium 10 MG TAB PO SCH (08:56)
[2018-06-13] MEDS: Sacubitril 49 MG/Valsartan 51 MG TABLET PO SCH ×2 (09:58→20:16)
--- NOTE | 2018-06-13 12:54 | PDOC.CTH ---
Cardiology Progress Note - Subjective His breathing is back to baseline. Still has LE edema and some abdominal distention. - Objective Vital Signs Temp Pulse Resp BP Pulse Ox 06/13/18 07:35 97.5 F L 78 18 95/71 98 06/13/18 04:00 98.9 F 77 18 99/61 97 Weight 253 lb 11.2 oz 06/12/18 06/13/18 06/14/18 06:59 06:59 06:59 Intake Total 570 960 Output Total 575 Balance 570 385 - Physical Examination General/Neuro: alert & oriented x3, NAD Neck: no JVD present Lungs: CTA, unlabored respirations Heart: RRR Abdomen: NT/ND Extremities: + edema B (2+) - Telemetry Telemetry Rhythm: NSR - Labs Result Diagrams: 06/11/18 05:08 06/11/18 05:08 Troponin/CKMB Troponin I Less than 0.010 ng/mL (< 0.028) 06/11/18 00:41 - Assessment/Plan 1. Acute on chronic systolic heart failure. 2. Non ischemic CM EF at 10-15% 3. Presence of an AICD 4. Possible pneumonia. PLAN: - Continue IV diuresis for one more day. - Likely home tomorrow.
--- NOTE | 2018-06-13 15:17 | PDOC.PN ---
- Subjective Encounter Start Date: 06/13/18 Encounter Start Time: 10:15 Subjective: pt up in bed no complains - Objective Resuscitation Status - Order Detail: 06/10/18 20:42 Resuscitation Status Routine Resuscitation Status: FULL: Full Resuscitation Vital Signs & Weight: Vital Signs (12 hours) Temp Pulse Resp BP Pulse Ox 06/13/18 09:30 98 06/13/18 07:35 97.5 F L 78 18 95/71 98 06/13/18 04:00 98.9 F 77 18 99/61 97 Weight Weight 253 lb 11.2 oz I&O: 06/12/18 06/13/18 06/14/18 06:59 06:59 06:59 Intake Total 570 960 Output Total 575 Balance 570 385 Result Diagrams: 06/11/18 05:08 06/11/18 05:08 Phys Exam - Physical Examination Neck: no nodes, no JVD, supple, full ROM Respiratory: no wheezing, no rales, no rhonchi, wheezing present, clear to auscultation bilateral Cardiovascular: RRR, no significant murmur, no rub, gallop, irregular Gastrointestinal: soft, non-tender, no distention, positive bowel sounds Musculoskeletal: edema present Dx/Plan (1) Acute on chronic combined systolic and diastolic ACC/AHA stage C congestive heart failure Code(s): I50.43 - ACUTE ON CHRONIC COMBINED SYSTOLIC AND DIASTOLIC HRT FAIL Status: Acute (2) Hypertension Code(s): I10 - ESSENTIAL (PRIMARY) HYPERTENSION Status: Chronic (3) Obesity (BMI 30-39.9) Code(s): E66.9 - OBESITY, UNSPECIFIED Status: Chronic (4) Pneumonia Code(s): J18.9 - PNEUMONIA, UNSPECIFIED ORGANISM Status: Acute - Plan spoke with cardiology one more day of diuresis -: will continue home meds -: discharge in am * . Review of Systems - Review of Systems Respiratory: negative: Cough, Dry, Shortness of Breath, Hemoptysis, SOB with Excertion, Pleuritic Pain, Sputum, Wheezing Cardiovascular: negative: chest pain, palpitations, orthopnea, paroxysmal nocturnal dyspnea, edema, light headedness, other Gastrointestinal: negative: Nausea, Vomiting, Abdominal Pain, Diarrhea, Constipation, Melena, Hematochezia, Other Genitourinary: negative: Dysuria, Frequency, Incontinence, Hematuria, Retention , Other - Medications/Allergies Allergies/Adverse Reactions: Allergies Allergy/AdvReac Type Severity Reaction Status Date / Time No Known Allergies Allergy Verified 11/07/17 11:23 Medications: Current Medications Acetaminophen (Tylenol) 650 mg PO Q6H PRN PRN Reason: Headache/Fever or Pain Albuterol/Ipratropium (Duoneb) 3 ml NEB [id number] [facility] Last Admin: 06/13/18 13:46 Dose: Not Given Aspirin (Aspirin Chewable) 81 mg PO DAILY [facility] Last Admin: 06/13/18 08:55 Dose: 81 mg Atorvastatin Calcium (Lipitor) 10 mg PO DAILY [facility] Last Admin: 06/13/18 08:56 Dose: 10 mg Carvedilol (Coreg) 6.25 mg PO BID [facility] Last Admin: 06/13/18 08:56 Dose: 6.25 mg Enoxaparin Sodium (Lovenox) 40 mg SC 0900 [facility] Last Admin: 06/13/18 08:56 Dose: 40 mg Furosemide (Lasix) 40 mg SLOW IVP 0600,1400 [facility] Last Admin: 06/13/18 14:48 Dose: 40 mg Azithromycin 500 mg/ Sodium (Chloride) 250 mls @ 250 mls/hr IVPB 1800 [facility] Last Admin: 06/12/18 18:08 Dose: 250 mls Ceftriaxone Sodium 1 gm/ (Sodium Chloride) 100 mls @ 200 mls/hr IVPB Q24HR [facility] Last Admin: 06/12/18 21:09 Dose: 100 mls Ondansetron HCl (Zofran) 4 mg IVP Q6H PRN PRN Reason: Nausea/Vomiting Pantoprazole Sodium (Protonix) 40 mg PO DAILY [facility] Last Admin: 06/13/18 08:56 Dose: 40 mg Sacubitril/Valsartan (Entresto 49 Mg-51 Mg Tablet) 1 tab PO BID [facility] Last Admin: 06/13/18 09:58 Dose: 1 tab
[2018-06-13] MEDS: Azithromycin 500 MG in Sodium Chloride 0.9% 250 ML 250 ML IVPB SCH (18:23)
[2018-06-13] MEDS: cefTRIAXone\\ROCEPHIN 1 GM in Sodium Chloride 0.9% 100 ML IVPB SCH (20:17)
[2018-06-14] MEDS: Furosemide 40 MG/4 ML VIAL SLOW IVP SCH (06:27)
[2018-06-14] MEDS ORDERED: Pantoprazole 40 MG GRANULES PACKET PO SCH (09:00)
[2018-06-14] MEDS: Atorvastatin Calcium 10 MG TAB PO SCH (10:25)
[2018-06-14] MEDS: Carvedilol 3.125 MG TAB PO SCH (10:25)
[2018-06-14] MEDS: Sacubitril 49 MG/Valsartan 51 MG TABLET PO SCH (10:25)
[2018-06-14] MEDS: Enoxaparin Sodium 40 MG/0.4 ML SYRINGE SC SCH (10:25)
[2018-06-14 12:28] VITALS: BP 99/63; TEMP 97.6
--- NOTE | 2018-06-14 14:45 | EKG ---
Test Reason : Blood Pressure : / mmHG Vent. Rate : 106 BPM Atrial Rate : 106 BPM P-R Int : 172 ms QRS Dur : 156 ms QT Int : 376 ms P-R-T Axes : 056 -51 074 degrees QTc Int : 499 ms Sinus tachycardia Wide QRS Biatrial enlargement Left ventricular hypertrophy Left axis deviation Non-specific intra-ventricular conduction block Abnormal ECG Confirmed by ERIC MCCOLLUM, OLGA Aponte ([id number]), senior technical editor ASHANTI SILVA ([id number]) on 06/14/2018 2:45:04 PM Referred By: Confirmed By:OLGA REYES MD
--- NOTE | 2018-06-15 08:34 | DIS ---
DATE OF ADMISSION: 06/10/2018 DATE OF DISCHARGE: 06/14/2018 DISCHARGE DIAGNOSES: As of the following; 1. Shortness of breath, most likely secondary to acute on chronic systolic heart failure. 2. Hypertension. 3. Obesity. 4. Pneumonia. HOSPITAL COURSE: The patient is a very pleasant 48-year-old male who initially presented to the hospital with complaints of epigastric pain. He was found to have elevated BNP. Also, the patient stated that he has been retaining quite a amount of fluid at home. According to the patient, he has been very compliant with his medications. He was initially given diuretics, which the following day, the patient stated that his abdominal pain resolved. He continued to receive diuretics while he was in the hospital and responded significantly. He was seen by Cardiology given his history of systolic heart failure. The patient just recently had an echocardiogram in November of 2017, and there was no need for repeating this echocardiogram. At that time, his EF was 10% to 15%. The patient also was found to have pneumonia, which was indicated on a CT that was done for possible dissection. This indicated that the patient did have a patchy density in the right upper lobe and some ground-glass density in the lungs bilaterally, and also had some small bilateral pleural effusions and no pulmonary emboli was noted at that time. The patient continued to improve. He was discharged home. 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 PHYSICAL EXAMINATION: VITAL SIGNS: Temperature 98.4, pulse 77, respiratory rate 16, on room air, blood pressure 101/61. GENERAL: He is awake, alert, and oriented x3. Does not appear in any distress. CV: S1 and S2 present. No murmurs, rubs, or gallops. ABDOMEN: Soft and nontender. Bowel sounds are present x2. EXTREMITIES: No edema. Pedal pulses are present x2. HOME MEDICATIONS: 1. Levaquin 500 mg daily for another 3 days. 2. Amiodarone 200 mg daily. 3. Aspirin 81 mg daily. 4. Atorvastatin 10 mg daily. 5. Coreg 6.25 mg b.i.d. 6. Nexium 20 mg daily. 7. Lasix 40 mg b.i.d. 8. Entresto 1 p.o. b.i.d. 9. Potassium 10 mEq daily. Again, he will be discharged home. He will follow up with his primary care doctor as an outpatient. Job ID: [id number]
== END 2018-06-14 13:13 | disposition home or self-care (01) | DRG 291 ==
LOC: ERS 18:24 → 2NO 19:30
PROVIDERS: ADMIT Hospitalist; ATTEND Hospitalist
DX: I11.0 Hypertensive heart disease with heart failure (principal); J18.9 Pneumonia, unspecified organism; Z68.41 Body mass index [BMI] 40.0-44.9, adult; I50.23 Acute on chronic systolic (congestive) heart failure; D64.9 Anemia, unspecified; E66.9 Obesity, unspecified; I42.9 Cardiomyopathy, unspecified; Z79.82 Long term (current) use of aspirin; Z95.810 Presence of automatic (implantable) cardiac defibrillator; Z90.49 Acquired absence of other specified parts of digestive tract
CPT/HCPCS: 36415; 36416; 71045; 71275; 80048; 80053; 81003; 82550; 83605; 83690; 83880; 84484; 85025; 87040; 87633; 87798; 90471; 90686; 93005; 93798; 94640; 96365; 96366; 96367; 96375; G0008; J0456; J0696; J1650; J1940; J2270; J2405; J7050; J7620

== ENCOUNTER 2019-08-24 15:53 | Emergency (ER) | payer MEDICAID, SELFPAY ==
--- NOTE | 2019-08-24 17:09 | RAD ---
RIGHT FOOT THREE VIEWS: 08/24/19 HISTORY: Right foot pain for one and a half weeks. FINDINGS: No evidence for acute fracture or dislocation. Minimal degenerative and osteoarthrosis change. IMPRESSION: No acute process. No fracture or dislocation. POS: [facility]
== END 2019-08-24 17:30 | disposition home or self-care (01) ==
LOC: ERS 15:53
DX: M79.671 Pain in right foot (principal); I11.0 Hypertensive heart disease with heart failure; I50.9 Heart failure, unspecified; Z79.82 Long term (current) use of aspirin; Z79.899 Other long term (current) drug therapy